=== PATIENT | male | born 1950 | race Caucasian/White ===

== ENCOUNTER 2023-07-06 14:16 | Inpatient (IN) | payer BC, MEDICARE, SELFPAY ==
[2023-07-06] VITALS (19 sets, daily range): BP systolic 123–147; BP diastolic 67–88; BMI 35.0; BMI 32.5
[2023-07-06 12:02] LABS: % Basophils 0.1 % (0-2); % Eosinophils 0.5 % (0-6); % Immature Granulocytes 0.7 % (0-0.5); % Lymphocytes 5.7 % (20.5-51.1); % Monocytes 9.1 % (1.7-9.3); % Neutrophils 83.9 % (42.2-75.2); Absolute Eosinophils 0.1 10^3/uL (0-0.7); Absolute Immature Granulocytes 0.1 10^3/uL (0-0.05); Absolute Lymphocytes 0.9 10^3/uL (1.2-3.4); Absolute Monocytes 1.4 10^3/uL (0.1-0.6); Absolute Neutrophils 12.9 10^3/uL (1.4-6.5); Mean Corpuscular Hgb 28.9 pg (27.0-31.0); Mean Corpuscular Volume 90.5 fL (80.0-94.0); Mean Platelet Volume 8.9 fL (7.4-10.4); Nucleated Red Blood Cells % 0.4 % (-); Platelet Count 217 10^3/uL (130-400); White Blood Cell Count 15.3 10^3/uL (4.8-10.8)
--- NOTE | 2023-07-06 12:07 | ED.GENMED ---
History of Present Illness
General
Chief Complaint: Abdominal Symptoms
Source: patient
Exam Limitations: none
Time Seen by Provider: 07/06/23 11:48
Travel History
Have you had any contact with someone who has COVID-19?: No
Do you have any symptoms of coronavirus? Fever > 100 degrees, chills, cough, shortness of breath, sore throat, loss of taste or smell, muscle aches, or headache?: No
History of Present Illness
History of Present Illness:
72-year-old male presents via EMS with complaints of weakness dizziness fatigue following an episode of diarrhea and constipation he has been dealing with over the past 4 days. He felt as though he had some bad macaroni and cheese. 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 He developed diarrhea 5 days ago then became constipated. After taking MiraLAX for his constipation his stool turned black. He now notes a motor bike mechanic ulloa color. He denies chest pain or shortness of breath. He notes racing heart. No
other complaints at this time
Phy Exam
Physical Exam
Physical Exam:
General: Well-appearing male no acute respiratory distress
HEENT: Normocephalic atraumatic
Heart: Tachycardic but regular
Lungs: Clear to auscultation bilaterally no wheezing
Abdomen is soft nontender nondistended guarding rebound normal bowel sounds
Extremities: No cyanosis or edema
Skin: Warm no rash
Course
Orders/Labs/Results
Orders:
Orders
07/06/23 11:41
Electrocardiogram (*1) Urgent
Reason for Study: Abdominal Pain
07/06/23 11:42
EKG- Treatment ONCE
07/06/23 11:50
COVID-19 Antigen Urgent
Source: Nasal Swab
Complete Blood Count/With Diff Urgent
Comprehensive Metabolic Panel Urgent
Ferritin Urgent
Comment: ADD ON
Folate Urgent
Comment: ADD ON
Iron Urgent
Comment: ADD ON
Lipase Urgent
Total Iron Binding Urgent
Comment: ADD ON
Vitamin B12 Urgent
Comment: ADD ON
INF RAPID [Influenza A+B Rapid Molecular] Urgent
MUKESH Source: Nasal Swab
Specimen Description:
07/06/23 12:18
0.9% Sodium Chloride 1000 ml [Nss] 1,000 ml IV BOLUS
07/06/23 12:43
Blood Bank Products [* Blood Bank Products] Urgent
Blood Bank Products: *Packed RBC Leuko(PRBC's)
Quantity: 2
Transfuse Today: Yes
Reason: Anemia
07/06/23 12:44
Pantoprazole [Protonix IV] 80 mg IV NOW STA
07/06/23 12:45
Pantoprazole 80 mg/100 ml Nss [Protonix] 80 mg in 100 ml IV Q10H
07/06/23 12:55
Type+Screen Urgent
07/06/23 13:32
Add On- LAB Urgent
Tests Added?: iron, ferritin, tibc, folate, vit b12
07/06/23 13:48
GASTROINTESTINAL CONSULT Routine
Consulting Provider: Olena Cat
Was physician already notified: Yes
07/06/23 13:50
Admit/Transfer Patient As Directed
Co-Sign Provider:
Level of Care: Inpatient admission
Assign to:: IMU- Intermediate Care
Physician / Group: catrina
Diagnosis: GI Bleed, Anemia
Reason for Hospitalization: GI consult; blood transfusion
Expected length of stay greater than two midnights?: Yes
ELOS- Estimated Length of Stay in days: 3
I certify the patient meets the requirements for IP care: Yes
07/06/23 13:52
Code Status As Directed
Resuscitation Status: Full Code
07/06/23 Dinner
NPO
Allow oral meds: Yes
Allow clear liquids: Sips of Clears
07/06/23 16:09
0.9% Sodium Chloride 1000 ml [Nss] 1,000 ml IV 100 mls/hr
07/06/23 16:09
Activity As Directed
Activity Level: Out of Bed- Chair
INT (Intravenous Needle Therapy) As Directed
Comment: Place 2 IV catheters of the largest bore possible until stable
Intake/ Output As Directed
Frequency: Per unit guidelines
Orthostatic Vital Signs As Directed
Orthostatic VS Frequency: Now
Comment: then every four hours for twenty-four hours
Pneumatic Compression Sleeves As Directed
Type: Knee high
Vital Signs As Directed
Frequency: Per unit guidelines
DX Deep Vein Thrombosis Video Routine
Abnormal Lab Results
07/06/23 07/06/23
11:50 12:55
WBC 15.3 H 10^3/uL
(4.8-10.8)
RBC 1.90 L 10^6/uL
(4.70-6.10)
Hgb 5.5 L* g/dL
(13.0-18.0)
Hct 17.2 L* %
(39.0-52.0)
MCHC 32.0 L g/dL
(33.0-37.0)
RDW 18.0 H %
(11.5-14.5)
Abs Immat Gran (auto) 0.1 H 10^3/uL
(0-0.05)
Absolute Neuts (auto) 12.9 H 10^3/uL
(1.4-6.5)
Absolute Lymphs (auto) 0.9 L 10^3/uL
(1.2-3.4)
Absolute Monos (auto) 1.4 H 10^3/uL
(0.1-0.6)
Immature Gran % 0.7 H %
(0-0.5)
Neutrophils % 83.9 H %
(42.2-75.2)
Lymphocytes % 5.7 L %
(20.5-51.1)
Sodium 132 L mmol/L
(135-145)
Glucose 134 H mg/dl
(70-99)
Iron 26 L ug/dl
(49-181)
% Saturation 6 L %
(20-50)
Ferritin 13.7 L ng/ml
(17.9-464.0)
AST 69 H U/L
(17-59)
Crossmatch IS Only See Detail
07/06/23 11:50
07/06/23 11:50
Vital Signs
Initial and Last Documented VS:
Initial Vital Signs
BP
132/67
07/06/23 11:38
Last Documented Vital Signs
Temp Pulse Resp BP Pulse Ox
99.0 F 105 25 138/79 96
07/07/23 12:13 07/07/23 11:45 07/07/23 11:45 07/07/23 11:45 07/07/23 13:26
MDM/Problems Addressed
Differential Diagnosis Includes:
Fatigue and weakness following diarrhea. Resting tachycardia. Looks dry on exam. No chest pain. Question of volume depletion versus electrolyte abnormality versus anemia
Abdomen exam benign. No indication for imaging
Will check labs and hydrate
*Critical Care Note
Total Time (30-74mins, 75-104mins- exclusive of procedures): Not Applicable
Update Note
Update Note:
Patient is resting tachycardic and upon standing to urinate and heart rate jumps into the higher 120s. He does feel lightheaded upon standing. Hemoglobin is 5.5. Rectal exam shows dark brown stool that is heme positive. Patient's symptoms are
from ongoing GI bleed. He is severely anemic and symptomatic. Blood consent signed. Ordered 2 units packed red blood cells and will admit to hospital
ED Attending Note
-
Portions of this chart may have been created with voice recognition software.� Occasional wrong word or��sound alike� substitutions may have occurred due to the inherent limitations of voice recognition software.
Discharge Plan
Departure
Patient Disposition: Admit
Date of Disposition: 07/06/23
Time of Disposition: 13:11
Admit to: Telemetry
Presentation/result/management discussed w/ accepting MD/DO: Hospitalist
Discharge Problem:
Anemia, Acute GI bleeding
Interventions
Interventions:
*General Assessment Last Done: 07/06/23 11:43
*Neglect/Abuse Screening Last Done: 07/06/23 11:43
*ED COVID-19 Vaccine History Last Done: 07/06/23 16:40
*Nursing Disposition Last Done: 07/06/23 16:16
TR-Tpwawg-Hlvduerylk Assessment Last Done: 07/06/23 12:55
Discharge Date and Time
Discharge Date/Time: 07/06/23 16:17
[2023-07-06 12:13] LABS: COVID-19 Antigen Negative (Negative)
[2023-07-06 12:16] LABS: Hematocrit 17.2 % (39.0-52.0); Hemoglobin 5.5 g/dL (13.0-18.0)
[2023-07-06] MEDS: NSS 1000 IV ×2 (12:20→17:06)
[2023-07-06 12:35] LABS: ALT (SGPT) 30 U/L (0-50); AST (SGOT) 69 U/L (17-59); Albumin 3.7 g/dl (3.5-5.0); Alkaline Phosphatase 88 U/L (38-126); Blood Urea Nitrogen 15 mg/dl (9-20); Calcium 8.5 mg/dl (8.4-10.2); Carbon Dioxide 22 mmol/L (22-30); Chloride 103 mmol/L (98-107); Estimated Creatinine Clearance 97 ml/min; Glucose 134 mg/dl (70-99); Lipase 59 U/L (23-300); Potassium 3.6 mmol/L (3.5-5.1); Sodium 132 mmol/L (135-145); Total Bilirubin 0.4 mg/dl (0.2-1.3); Total Protein 6.6 g/dl (6.3-8.2); eGFR > 60.00
[2023-07-06] MEDS: PROTONIX 100 IV ×2 (13:20→23:23)
[2023-07-06] MEDS: PROTONIX IV 80 MG IV (13:20)
--- NOTE | 2023-07-06 14:10 | HPS.HSE ---
Addendum entered and electronically signed by Bernard Phillip MD 07/06/23 14:32:
I saw and examined the patient.
The RECOVERY ADVOCATE or PA's note was reviewed and I agree with the note.
Comment: 72-year-old male presents with chief complaint of weakness and dizziness.
147/79, 109, 16, 97.6 F, 99% RA
NAD, awake and alert
Tachycardic, regular rhythm, normal S1/S2
CTAB
+BS/soft/NT/ND
CN2-12 intact, non-focal
WBC 15.3, Hb 5.5, plt 217
Cr 0.7
Acute blood loss anemia due to likely acute upper GI bleed:
-NPO/IV fluids/PPI drip
-suspect PUD as the cause of GIB due to NSAIDs
-c/s GI for EGD, hopefully this will be done today
-transfuse 2U pRBCs
-H/H Q6H
-IMU
Original Note:
Family Physician
-
Family Physician: * NONE
Chief Complaint
-
Weakness and Dizziness
History of Present Illness
Patient is a 72 y/o male with no known significant PMH who presented to the ED complaining of dizziness x 2 days. Patient says he has been feeling unwell since Sunday which he attributes to bad macaroni and cheese. 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 This continued on Sunday but he continued to drive several hours. On Sunday, he became constipated and was able to tolerate a small amount of food. He took
Miralax on Sunday and had black stool. He denies taking Pepto Bismol. He had soft walker stool on Sunday and . Today he was dizzy and felt his heart racing which made him present to the ED. He admits to chronic left hip pain for which he
was taking 2 tabs of ibuprofen every 4 hours for a few years. He switched to Aleve 2 months ago and has been taking one tablet 2-3 times per day. He last saw a doctor 10 years ago and had a colonoscopy which he says was normal. He denies fever and
abdominal pain.
Medical History
Past Medical History
Past Medical History: Reports None
Past Surgical History: Reports Other
Additional Past Surgical History:
Right Hip Replacement
Right Forearm Benign Tumor Resection
Right Shoulder Bone Chip Removal
Social History
Tobacco: Non-smoker
Alcohol: Occasional
Family History
Family History: Not pertinent
Allergies / Home Medications
Allergies reflects when Allergies were last updated in [employer].
Home Medications with original date entered in [employer]
Allergy/Medication List:
Allergies
Allergy/AdvReac Type Severity Reaction Status Date / Time
acetaminophen Allergy Nausea Verified 07/06/23 11:39
[From Tylenol-Codeine #3]
codeine Allergy Nausea Verified 07/06/23 11:39
[From Tylenol-Codeine #3]
Home Medications
naproxen sodium 220 mg tablet (Aleve) 220 mg PO Q8HPRN PRN pain 07/06/23
Review of Systems
-
A 12 point ROS was completed and negative except as noted: Yes
Constitutional: Denies Fever or Chills
Respiratory: Reports Trouble Breathing; Denies Cough
Cardiac: Reports Palpitations; Denies Chest Pain
Physical Exam
Vital Signs
Vital Signs
Temp Pulse Resp BP Pulse Ox
97.6 F 109 16 147/79 99
07/06/23 11:43 07/06/23 13:30 07/06/23 11:45 07/06/23 13:00 07/06/23 12:30
Physical Exam
General: Comfortable and Conversant
HEENT: NormoCephalic, Anicteric and Moist mucous membranes
Respiratory: Clear and Non Labored Respirations
Cardiac: S1/S2, Regular Rhythm and Tachycardia
GI: Soft and Non Tender
Rectal: Hem Positive (Per ED Provider)
Musculoskeletal: No Clubbing, No Cyanosis and No Edema
Skin: Warm and Dry
Neuro: Awake, Alert and Oriented
Psych: Calm
Laboratory Results
-
07/06/23 11:50
07/06/23 11:50
Laboratory Results
Total Bilirubin 0.4 mg/dl (0.2-1.3) 07/06/23 11:50
AST 69 U/L (17-59) H 07/06/23 11:50
ALT 30 U/L (0-50) 07/06/23 11:50
Alkaline Phosphatase 88 U/L (38-126) 07/06/23 11:50
Lipase 59 U/L (23-300) 07/06/23 11:50
Data Reviewed
-
Lab Data: Labs Reviewed by me
Impression/Plan
-
Symptomatic Anemia, suspect acute blood loss
-Transfuse 2 units PRBCs
-Check iron studies
-Trend serial Hgb
GI Bleed, suspect upper nature particularly given his NSAID use
-Consult GI
-Continue Protonix drip
DVT proph: SCDs
Code Status: Full Code
--- NOTE | 2023-07-06 14:38 | CON.GI ---
Addendum entered and electronically signed by Olena Cat MD 07/06/23 15:44:
I saw and examined the patient.
The AUTOMOTIVE GLASS INSTALLER's note was reviewed and I agree with the note.
-Acute symptomatic anemia /dark stool/NSAID use -likely upper GI bleeding. No prior EGD.
-Family history of colon cancer last colonoscopy over 10 years back.
plan
Monitor H&H
Transfuse to keep hemoglobin above 7
Continue PPI drip
Full liquid diet now. N.p.o. after midnight
EGD tomorrow. If EGD negative will discuss about colonoscopy inpatient versus outpatient
Original Note:
Consultation
-
Date/Time Consultation Requested: 07/06/23 1410
Date/Time Consultation Performed: 07/06/23 1430
Requesting Provider: Kell Lo PA-C
Performing Provider: HARDEEP Dickinson, Olena Cat MD
Reason for Consultation: anemia
Medical History
Chief Complaint / HPI
Chief Complaint: weakness, dizziness
History of Present Illness:
Pt is a 72yo with hx prior hip replacement, forarm benign tumor, and shoulder surgery with onset of dizziness and weakness. Pt was also noted with diarrhea and food intolerance and thought he had food poisoning. He was noted Sunday with black
stools, continued dizziness and increased heart rate. Prior to admission admit to chronic hip pain and need for hip replacement. He has been taking Ibuprofen every 4 hours for years. About 3 months ago he switched to Aleve 4 tablets daily. On
admission noted with hbg 5.5 with WBC 15.3 and normal BUN. Rectal in ER dark brown heme + stools. NO hx EGD and last colonoscopy 10-12 years ago normal.
Pt currently admits to red stools several months with possible hemorrhoids. He otherwise denies odynophagia, dysphagia, GERD, nausea, vomiting, or abdominal pain
Past Medical History
Past Surgical History: Orthopedic (right hip replacement, right forarm benign tumor, right shoulder bone chip)
Social History
Tobacco: Non-Smoker
Alcohol: None
Drug: None
Living: With Family
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
Family History
Family History: Other (mother with colon CA father hx unknown )
Allergies / Home Medications
Allergy/AdvReac Type Severity Reaction Status Date / Time
acetaminophen Allergy Nausea Verified 07/06/23 11:39
[From Tylenol-Codeine #3]
codeine Allergy Nausea Verified 07/06/23 11:39
[From Tylenol-Codeine #3]
Medication Instructions Recorded
naproxen sodium 220 mg tablet 220 mg PO Q8HPRN PRN pain 07/06/23
(Aleve)
Review of Systems
-
History Source: Patient and Family
Constitutional: Reports No Symptoms
EENT: Reports No Symptoms
Respiratory: Reports Trouble Breathing
Cardiac: Reports Chest Pain and Palpitations
Abdomen/GI: Reports Bloody Stools (3 months ago ? hemorrhoids ) and Black Stools
: Reports No Symptoms
Musculoskeletal: Reports No Symptoms
Neurological: Reports Dizzy and Weakness
Endocrine: Reports No Symptoms
Hematologic/Lymphatic: Reports Bleeding
Vital Signs
Temp Pulse Resp BP Pulse Ox
97.6 F 109 16 147/79 99
07/06/23 11:43 07/06/23 13:30 07/06/23 11:45 07/06/23 13:00 07/06/23 12:30
Physical Exam
Exam
General: Well Developed, Well Nourished and No Apparent Distress
HEENT: Normocephalic and Anicteric
Respiratory: Clear
Cardiac: Other (tachy)
GI: Soft, Non Tender and Non Distended
Rectal: Other (heme + dark brown stool )
Musculoskeletal: No Clubbing and No Cyanosis
Skin: Warm and Dry
Neuro: Awake, Alert and AO x 3
Psych: Calm
Results
WBC 15.3 10^3/uL (4.8-10.8) H 07/06/23 11:50
Hgb 5.5 g/dL (13.0-18.0) L* 07/06/23 11:50
Hct 17.2 % (39.0-52.0) L* 07/06/23 11:50
MCV 90.5 fL (80.0-94.0) 07/06/23 11:50
Plt Count 217 10^3/uL (130-400) 07/06/23 11:50
Absolute Neuts (auto) 12.9 10^3/uL (1.4-6.5) H 07/06/23 11:50
Sodium 132 mmol/L (135-145) L 07/06/23 11:50
Potassium 3.6 mmol/L (3.5-5.1) 07/06/23 11:50
Chloride 103 mmol/L (98-107) 07/06/23 11:50
Carbon Dioxide 22 mmol/L (22-30) 07/06/23 11:50
BUN 15 mg/dl (9-20) 07/06/23 11:50
Creatinine 0.7 mg/dL (0.7-1.3) 07/06/23 11:50
Calcium 8.5 mg/dl (8.4-10.2) 07/06/23 11:50
Total Bilirubin 0.4 mg/dl (0.2-1.3) 07/06/23 11:50
AST 69 U/L (17-59) H 07/06/23 11:50
ALT 30 U/L (0-50) 07/06/23 11:50
Alkaline Phosphatase 88 U/L (38-126) 07/06/23 11:50
Lipase 59 U/L (23-300) 07/06/23 11:50
Diagnostic Image Results:
Prior GI Procedures:
EGD: none
Colonoscopy: 10- 12 years ago normal
Assessment / Plan
-
Pt is a 72yo with hx prior hip replacement, forarm benign tumor, and shoulder surgery with onset of diarrhea and food intolerance with concern for food poisoning. He then noted black stools and admits to taking Ibuprofen every 4 hours for years.
About 3 months ago he switched to Aleve 4 tablets daily. On admission noted with hbg 5.5 with WBC 15.3 and normal BUN. Rectal in ER dark brown heme + stools. NO hx EGD and last colonoscopy 10-12 years ago normal.
-symptomatic anemia
-recent melena
-frequent NSAID use
-chronic hip pain
-family hx colon CA
PLAN:
etiology of anemia likely related to PUD with hx NSAID use vs ectasia, mass vs other in differential
plan for transfusion today
trend hbg
EGD if AM in neg then colonoscopy
cont protonix gtt
counseled on NSAID avoidance ok for Tylenol use < 4 grams per day
discussed plan with pt and daughter will need PCP established in [place] to review for chronic pain in hip and OP ortho eval
if colonoscopy not completed inpatient will need OP for follow up for family hx colon CA
ok for full liquid diet tonight then NPO in AM
await iron studies see if benefit from iron infusion
will follow
-
-
Thank you for consultation and allowing me to participate in the patient's care. Please call the oncology radiation physician GI physician during the after hours with any questions or concerns.
[2023-07-06 15:04] LABS: Iron 26 ug/dl (49-181)
[2023-07-06 15:13] LABS: Percent Saturation 6 % (20-50); Total Iron Binding Capacity 430 ug/dl (261-462)
[2023-07-06 15:37] LABS: Ferritin 13.7 ng/ml (17.9-464.0)
[2023-07-06 16:09] LABS: Folate 16.9 ng/ml (2.76-20); Vitamin B12 443 pg/ml (239-931)
--- NOTE | 2023-07-06 18:02 | PTCARENOTE ---
Patient arrived from ER with GI bleed diagnosis. First unit of PRBCs transfusing upon arrival. Patient having pain on left hip when he moves it. Oriented to person, place and time. NPO. Patient was oriented to room, fully bathed. Educated about plan
of care. Patient was complaining of a numbness feeling to his upper lip when he arrived, but it resolved within minutes. Tolerating the blood transfusion at this time.
[2023-07-06] MEDS: PROTONIX IV (23:50)
[2023-07-07] VITALS (37 sets, daily range): BP systolic 116–150; BP diastolic 73–92; BMI 33.5
--- NOTE | 2023-07-07 00:48 | PTCARENOTE ---
Addendum entered by Sissy Pacheco 07/07/23 03:34:
Pt noted to desat periodically to 88, 2L O2 placed with improvement to 96%
Original Note:
Pt AAOx3, anxious at times, but very cooperative. Pt c/o pain in his L hip and states he needs a hip replacement. Positioning assistance provided to assist pain. Pt states pain is better in certain positions and worsens with exertion and
weight-bearing. Denies dizziness, lightheadedness, etc. 2nd unit PRBCs transfused and tolerated. Pt c/o slight numbness/stinging feeling in his upper lip at the 15 minute sha of transfusion and states that he experienced the same phenomenon with
the previous transfusion. GRANTS ASSISTANT notified. Pt states spontaneous relief of symptoms without intervention. This Rn encouraged pt to alert care team of changes in symptoms.
[2023-07-07] MEDS: NSS 1000 IV ×3 (03:20→23:07)
[2023-07-07 05:34] LABS: Mean Corp Hgb Conc. 32.8 g/dL (33.0-37.0); Mean Corpuscular Hgb 28.4 pg (27.0-31.0); Mean Corpuscular Volume 86.8 fL (80.0-94.0); Platelet Count 156 10^3/uL (130-400); Red Blood Cell Count 2.04 10^6/uL (4.70-6.10); Red Cell Dist. Width 17.3 % (11.5-14.5); White Blood Cell Count 11.9 10^3/uL (4.8-10.8)
[2023-07-07 05:39] LABS: Hematocrit 17.7 % (39.0-52.0); Hemoglobin 5.8 g/dL (13.0-18.0)
[2023-07-07 05:59] LABS: Blood Urea Nitrogen 8 mg/dl (9-20); Calcium 4.8 mg/dl (8.4-10.2); Carbon Dioxide 15 mmol/L (22-30); Chloride 121 mmol/L (98-107); Estimated Creatinine Clearance 113 ml/min; Glucose 64 mg/dl (70-99); Potassium 2.3 mmol/L (3.5-5.1); Sodium 136 mmol/L (135-145); eGFR > 60.00
--- NOTE | 2023-07-07 06:22 | W.PN.UPDATE ---
Update Note
Progress Note Update
hgb 5.8 this AM. Received 2 units PRBC's over night. per nursing noted small dark stool. Will order 2 units of PRBC's
k 2.3, will order K-rider once
calcium 4.8, corrected calcium 4.6, will order Calcium gluconate IV
will order EKG for abnormal labs.
stable VS.
[2023-07-07] MEDS: KCL 270 MEQ IV (06:26)
[2023-07-07] MEDS: CALCIUM GLUCONATE 100 IV (07:43)
--- NOTE | 2023-07-07 08:00 | W.PN.HOSP.TC ---
Addendum entered and electronically signed by Ender Muñoz MD 07/07/23 12:33:
repeat hgb noted to be 7.7 and with probable transfusion rxn, will dc further blood transfusion at this time
Addendum entered and electronically signed by Ender Muñoz MD 07/07/23 09:36:
called back to see pt by nurse, when pt expressed itchy area on legs that on exam by nurse appears to be a rash
concern for transfusion rxn
Lungs totally clear, no wheeze
CV reg
Imp:rash of ?etiology, most pronounced on legs, Rt>Lt, lesser on abd and arms and pt needs the blood
P:IV Benadryl now and q6h prn
Heme consult
follow CBC
Addendum entered and electronically signed by Ender Muñoz MD 07/07/23 08:32:
Jade gonzalez called and fully updated >10 minutes
Original Note:
Today's Communication/Plan
-
transfer to ICU
correct electrolytes, transfuse
Picc line
Assessment / Plan
Assessment / Plan
Acute blood loss anemia due to likely acute upper GI bleed:
-NPO/IV fluids/PPI drip
-suspect PUD as the cause of GIB due to NSAIDs
-c/s GI for EGD, due to electrolyte issues, text received from Dr. Cat, plan is to 'hold off on EGD'
-transfused 2U pRBCs
Hgb 5.5-->5.8, to receive additional 2 units CATHY, already ordered
Hypokalemia/Hypocalcemia
most likely transfusion related. Will replete and recheck in 5 hours
Borderline tachycardia
most likely from blood loss anemia. Will follow closely
P:2 units PRBC now
IV K and Ca now
continue IV Protonix
transfer ICU/CCM consult requested, Dr. Coffey aware
recheck labs
await decision as to timing of EGD
Pt attempted to call dgt to update, no answer, he then called friend Zbigniew who will update dgt,
Full Code
Total Critical Care Time 55 minutes. I was immediately available to the patient and staff. I personally examined, reviewed labs, diagnostic images/reports, interpretations, treatment plans, discussed patient care with other providers and family
or caregivers (if patient is unable to make decisions), entered orders as appropriate and documented the medical record.
Anticipated Discharge: > 48 hours
Subjective/Interval History
-
Date of Service: July 07, 2023
Called by nursing to see patient CATHY due to lab results and concern for instability, came to unit immediately
Objective Data
-
Labs:
Laboratory Results
07/06/23 07/07/23 07/07/23
19:30 05:10 13:00
WBC 11.9 H Pending
Hgb Cancelled 5.8 L* Pending
Hct Cancelled 17.7 L* Pending
Plt Count 156 D Pending
Sodium 136
Potassium 2.3 L* D
Chloride 121 H
Carbon Dioxide 15 L
BUN 8 L
Creatinine 0.4 L
Glucose 64 L
Calcium 4.8 L* D
07/07/23 07/07/23
13:52 21:52
WBC
Hgb Pending
Hct
Plt Count
Sodium Pending
Potassium Pending
Chloride Pending
Carbon Dioxide Pending
BUN Pending
Creatinine Pending
Glucose Pending
Calcium Pending
Vital Signs:
Vital Signs
Temp Pulse Resp BP Pulse Ox
99.2 F 96 19 119/77 98
07/07/23 03:20 07/07/23 06:00 07/07/23 06:00 07/07/23 06:00 03/23/24 06:00
I&O
07/06/23 07/07/23 07/08/23
06:59 06:59 06:59
Intake Total 2660 / 2659
Output Total 970 /
Balance 1690 / 169
Review of Systems
-
History Source: Patient and Coordinated Provider
Constitutional: Reports Fever (100.1 at 23:44)
Respiratory: Reports No Symptoms; Denies Trouble Breathing
Cardiac: Denies Chest Pain (pt denies)
Musculoskeletal: Reports Joint Pain (chronic hip pain)
Neuro: Reports No Symptoms
Physical Exam
-
General: Well Developed, Well Nourished and No Apparent Distress
HEENT: Normocephalic, Atraumatic and Moist Mucous Membranes
Respiratory: Clear to Auscultation; Negative Wheezes, Rales or Rhonchi
Cardiac: Regular Rhythm, S1/S2 and Tachycardic (borderline 95-108)
GI: Soft, Nontender and Nondistended
Rectal: Hem Positive (as per nursing)
Neuro: Awake, Alert and Oriented
--- NOTE | 2023-07-07 09:23 | CON.INTV ---
Consultation
Consultation Request
Date/Time Consultation Requested: 07/07/2023-9 AM
Date/Time Consultation Performed: 07/07/2023-9 AM
Requesting Provider: Dr. Muñoz
Performing Provider: Dr. Coffey
Reason for Consultation: Critical care management
Medical History
-
Chief Complaint: GI bleed
History of Present Illness:
72-year-old male without significant past medical history presents with dizziness, hypotension, diarrhea and felt to have GI bleed with anemia and electrolyte imbalances requiring fluid resuscitation, transfusions and intensive care unit
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 He denies any shortness of breath lying flat, chest pain, chest tightness, productive cough, abdominal pain, his nausea has improved. He does not complain of
weakness or lower extremity swelling.
Past Medical History
Past Medical History: None (Offers no complaint plaints of previous hypertension, hyperlipidemia, CAD, pulmonary, renal, gastrointestinal or neurologic disease in the past)
Past Surgical History: None (Right forearm tumor resection. Right shoulder bone chip removal)
Social History
Tobacco: Non-smoker
Alcohol: None
Drug: None
Occupational Exposures: No known asbestos exposure
Environmental Exposures: No known tuberculosis exposure
Family History
Family History: Reviewed & Not Pertinent
Allergies / Home Medications
Allergies
Allergy/AdvReac Type Severity Reaction Status Date / Time
acetaminophen Allergy Nausea Verified 07/06/23 11:39
[From Tylenol-Codeine #3]
codeine Allergy Nausea Verified 07/06/23 11:39
[From Tylenol-Codeine #3]
Home Medications
Medication Instructions Recorded Confirmed Last Taken Type
naproxen sodium 220 mg tablet 220 mg PO Q8HPRN PRN pain 07/06/23 07/06/23 Unknown History
(Aleve)
Review of Systems
-
Unable to Obtain full review of systems at this time due to: Other (Per HPI)
Vitals / Labs / Diagnostic Testing
Vital Signs
Temp Pulse Resp BP Pulse Ox
99.3 F 108 23 133/86 97
07/07/23 08:57 07/07/23 08:57 07/07/23 08:57 07/07/23 08:57 07/07/23 08:57
Microbiology
07/06/23 11:50 Nasal Swab Influenza Types A & B (DESI) - Final
Negative for Influenza A & B, NAAT
Negative results must be combined with clinical observations
and patient history.
Nucleic Acid Amplification test (NAAT)performed on the
[employer] platform.
Diagnostic Testing:
Physical Exam
-
Exam:
Well-nourished and well-developed in no apparent distress
HEENT-atraumatic, normocephalic
Neck-supple, no JVD, no bruit
Heart-regular rate and rhythm-no murmurs, rubs or gallops
Chest-clear to auscultation, no wheezes, crackles
Back-no tenderness
Abdomen-soft, nontender, nondistended, no hepatosplenomegaly
Extremities-no cyanosis, clubbing, edema and good peripheral pulses
Integument-intact, no rashes, lesions or ecchymosis
Neurology-alert and oriented, nonfocal motor and sensory exam
Assessment
-
72-year-old male without significant past medical history presents with dizziness, hypotension, diarrhea, and taking nonsteroidals for several years for left hip pain and felt to have GI bleed with anemia and electrolyte imbalances requiring fluid
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
Anemia due to acute blood loss-hemoglobin 5.5
Upper GI bleed suspected-given significant nonsteroidal use
Suspected transfusion reaction
Mild leukocytosis
Hypokalemia-potassium 2.3
Metabolic acidosis
Hypoglycemia
Hypocalcemia
Conditions present prior to admission:
Right forearm benign tumor resection
Right shoulder bone chip removal
Denies hypertension, hyperlipidemia, CAD, pulmonary, renal, gastrointestinal or neurologic disease
Plan
Patient will be transferred to medical intensive care with active bleeding, critically ill and in need of resuscitation
Supplemental oxygen as needed
Aspiration precautions
Incentive spirometry
Monitor hemoglobin
Transfuse packed red blood cells and FFP as needed
Monitor coagulopathy
Possible transfusion reaction
Transfusion stopped-blood bank notified
Blood and urine samples taken
Hematology evaluation
GI evaluation
Consider endoscopy-tentatively scheduled for Sunday
PPI drip
Replace electrolytes
Follow electrolytes closely
Dextrose for hypoglycemia
Intravenous fluids
DVT prophylaxis-mechanical
GI prophylaxis-on PPI
Aspiration precautions
Nutrition-nothing p.o. for now
Early mobilization
Critical care statement: A total of 50 minutes of critical care time was provided for this patient today. This includes management of unstable vital signs, management of transfusions, evaluation of the patient at bedside, reviewing the patient's
pertinent medical records including radiographs, microbiology, laboratory evaluations, and discussion with primary team, consultants, pharmacy, nutrition, physical therapy, case management, charge nurse, critical care nursing, and respiratory
therapy.
Diagnostic data:
Data Reviewed
-
EKG: Report reviewed by me
Labs: Labs reviewed by me
Old Records: Reviewed
Critical Care Time (in minutes): 50
--- NOTE | 2023-07-07 09:26 | PTCARENOTE ---
Minutes into starting 3rd unit of PRBCs as nurse was assessing patient urticaria was observed on patients arms, abdomen and legs. Dr. Muñoz contacted and assessed patient at bedside. Vital signs 135/75, 105, 19, 98.2. Patient also stating that he
is having a tingling feeling on upper lip, no objective signs of swelling. New orders pending.
[2023-07-07] MEDS: BENADRYL 25 MG IV ×2 (09:46→23:00)
[2023-07-07] MEDS: PROTONIX 100 IV ×2 (10:13→20:26)
[2023-07-07 10:32] LABS: % Basophils 0.2 % (0-2); % Eosinophils 0.5 % (0-6); % Immature Granulocytes 0.7 % (0-0.5); % Lymphocytes 6.8 % (20.5-51.1); % Monocytes 10.2 % (1.7-9.3); % Neutrophils 81.6 % (42.2-75.2); Absolute Eosinophils 0.1 10^3/uL (0-0.7); Absolute Immature Granulocytes 0.1 10^3/uL (0-0.05); Absolute Lymphocytes 0.9 10^3/uL (1.2-3.4); Absolute Monocytes 1.4 10^3/uL (0.1-0.6); Absolute Neutrophils 10.9 10^3/uL (1.4-6.5); Hematocrit 23.7 % (39.0-52.0); Mean Corp Hgb Conc. 32.5 g/dL (33.0-37.0); Mean Corpuscular Hgb 28.2 pg (27.0-31.0); Mean Corpuscular Volume 86.8 fL (80.0-94.0); Mean Platelet Volume 9.1 fL (7.4-10.4); Nucleated Red Blood Cells % 0.5 % (-); Platelet Count 216 10^3/uL (130-400); Red Blood Cell Count 2.73 10^6/uL (4.70-6.10); Red Cell Dist. Width 17.3 % (11.5-14.5); White Blood Cell Count 13.3 10^3/uL (4.8-10.8)
[2023-07-07 10:39] LABS: Hemoglobin 7.7 g/dL (13.0-18.0)
--- NOTE | 2023-07-07 10:45 | PTCARENOTE ---
Pt received from IMU to ICU room 3357. (VS's captured from 0800). Pt oriented x3, HR ST 101, BP stable. O2 2l nc with o2 sat=99%. Lobes clear throughout. Pt denies any CP or SOB at this time. Rash on body gone now. Dr Cat from GI in to see pt.
Pt cleared for full liq diet now, and does not want to scope pt until mon. Dr Coffey assessed pt, no further blood transfusions to given at this time. Complete CHG bath given, and linen changed. Call zacarias at pt side.
--- NOTE | 2023-07-07 10:54 | PTCARENOTE ---
Patients hives continued and patient started to complain of chest pain. Blood stopped and reaction reported. Dr. Muñoz and Erlinda aware. Blood reaction protocol followed. Benadryl 25 mg administered IV with relief. Patient transferred to ICU with
personal belongings.
[2023-07-07 10:57] LABS: Blood Urea Nitrogen 12 mg/dl (9-20); Calcium 7.9 mg/dl (8.4-10.2); Carbon Dioxide 23 mmol/L (22-30); Chloride 105 mmol/L (98-107); Estimated Creatinine Clearance 85 ml/min; Glucose 104 mg/dl (70-99); Potassium 4.1 mmol/L (3.5-5.1); Sodium 133 mmol/L (135-145); eGFR > 60.00
--- NOTE | 2023-07-07 11:14 | W.PN.GI.CBS2 ---
Today's Communication / Plan
-
Monitor H&H. Transfuse to keep hemoglobin above 7
Correct hypokalemia
liquid diet
EGD plan tentatively on Sunday
Assessment / Plan
-
Pt is a 72yo with hx prior hip replacement, forarm benign tumor, and shoulder surgery with onset of diarrhea and food intolerance with concern for food poisoning. He then noted black stools and admits to taking Ibuprofen every 4 hours for years.
About 3 months ago he switched to Aleve 4 tablets daily. On admission noted with hbg 5.5 with WBC 15.3 and normal BUN. Rectal in ER dark brown heme + stools. NO hx EGD and last colonoscopy 10-12 years ago normal.
-symptomatic anemia
-recent melena
-frequent NSAID use
-chronic hip pain
-family hx colon CA
PLAN:
Patient is scheduled to have EGD this a.m. Procedure was canceled because patient remains severely anemic with a hemoglobin of 5.8 after 2 units of blood transfusion yesterday. And also noted to have severe hypokalemia. Denies any overt GI
bleeding at present. ED dark brown heme + stool. Will advised to continue monitor H&H. Transfuse to keep hemoglobin above 7.
Correction of hypokalemia as per medical team
We will reevaluate tomorrow and decide on EGD on Sunday. Patient eventually needs colonoscopy -inpatient versus outpatient
Continue Protonix drip
full liquid diet
Will follow
I updated patient/patient's daughter about the plan
Total Time Spent with Patient (in minutes): 35
Subjective
Subjective
Date of Service: July 07, 2023
Denies any abdominal pain/nausea/vomiting/rectal bleeding. Small amount of dark stool noted by RN .
Objective
Data Reviewed
Laboratory Data:
Laboratory Results
07/07/23 10:04
Laboratory Results
Total Bilirubin 0.4 mg/dl (0.2-1.3) 07/06/23 11:50
AST 69 U/L (17-59) H 07/06/23 11:50
ALT 30 U/L (0-50) 07/06/23 11:50
Alkaline Phosphatase 88 U/L (38-126) 07/06/23 11:50
Lipase 59 U/L (23-300) 07/06/23 11:50
Vital Signs and I&O:
Vital Signs
Temp Pulse Resp BP Pulse Ox
99.1 F 108 25 146/86 97
07/07/23 09:54 07/07/23 09:54 07/07/23 09:54 07/07/23 09:54 07/07/23 09:54
I&O
07/06/23 07/07/23 07/08/23
06:59 06:59 06:59
Intake Total 2660 / 2660 0 / 0
Output Total 970 / 970
Balance 1690 / 1690 0 / 0
Physical Exam
Physical Exam
GI: Soft, Non Distended, Non Tender and Normal Bowel Sounds
--- NOTE | 2023-07-07 13:07 | PTCARENOTE ---
Hbg 7.7, Dr Muñoz and Dr Cat updated. Blood transfusions #3 and #[address] Muñoz. R upper arm midline placed by IV team (VAT team). Pt calling kitchen now, ordering a full liq lunch.
[2023-07-07 16:04] LABS: 5Hr. Total Bilirubin 1.2 mg/dl (0.2-1.3)
--- NOTE | 2023-07-07 16:14 | PTCARENOTE ---
Dr Muñoz updated on pt's HR slowly increasing to 110-115 ST compared to 100-101 on arrival to ICU. BP remains stable 129/77. O2 sat stable 98% on 2l nc. H+H level check changed from 2[address] Muñoz did come and assess pt. Pt
without any c/o pain. HemOcc was also consulted.
--- NOTE | 2023-07-07 20:00 | PTCARENOTE ---
Received pt. at 1900. Pt. awake, alert, and oriented. No pain or discomfort when lying still, however pt. does complain of hip pain when turning. He attributes this to prior issues and needing a hip replacement. Heart rhythm sinus. Blood pressure
normotensive. Currently on 2L nasal cannula. Lungs sound diminished. Full liquid diet ordered. Voiding in urinal without issue. Skin as documented. Discussed plan of care with patient. Will continue to trend hemoglobin. If transfusion is needed, IV
benadryl will be given prior to transfusion. Vital signs stable at this time.
[2023-07-08] VITALS (26 sets, daily range): BP systolic 127–182; BP diastolic 74–96; BMI 33.3
--- NOTE | 2023-07-08 | PTCARENOTE ---
Pt. most recent hemoglobin is 7. Physician goal is to keep hemoglobin >7. 1u PRBC ordered. IV benadryl given prior to start of transfusion. PRBC unit currently transfusing. No reaction symptoms noted. Vital signs stable at this time.
[2023-07-08 03:18] LABS: % Basophils 0.1 % (0-2); % Eosinophils 1.9 % (0-6); % Immature Granulocytes 0.5 % (0-0.5); % Lymphocytes 12.2 % (20.5-51.1); % Monocytes 11.5 % (1.7-9.3); % Neutrophils 73.8 % (42.2-75.2); Absolute Eosinophils 0.3 10^3/uL (0-0.7); Absolute Immature Granulocytes 0.1 10^3/uL (0-0.05); Absolute Lymphocytes 1.7 10^3/uL (1.2-3.4); Absolute Monocytes 1.6 10^3/uL (0.1-0.6); Absolute Neutrophils 10.3 10^3/uL (1.4-6.5); Hematocrit 22.6 % (39.0-52.0); Hemoglobin 7.8 g/dL (13.0-18.0); Mean Corp Hgb Conc. 34.5 g/dL (33.0-37.0); Mean Corpuscular Hgb 29.1 pg (27.0-31.0); Mean Corpuscular Volume 84.3 fL (80.0-94.0); Mean Platelet Volume 8.8 fL (7.4-10.4); Nucleated Red Blood Cells % 0.4 % (-); Platelet Count 182 10^3/uL (130-400); Red Blood Cell Count 2.68 10^6/uL (4.70-6.10); Red Cell Dist. Width 16.6 % (11.5-14.5); White Blood Cell Count 13.9 10^3/uL (4.8-10.8)
[2023-07-08 03:30] LABS: INR 1.28; PT 15.8 Sec (11.4-14.6)
[2023-07-08 03:31] LABS: APTT 37.7 Sec (23.4-35.0)
--- NOTE | 2023-07-08 04:00 | PTCARENOTE ---
Pt. assessment remains unchanged. No signs of active bleeding. 1u PRBC given. AM labs drawn. Hemoglobin is now 7.8. Vital signs stable at this time.
[2023-07-08 04:14] LABS: Blood Urea Nitrogen 10 mg/dl (9-20); Calcium 7.6 mg/dl (8.4-10.2); Carbon Dioxide 23 mmol/L (22-30); Chloride 106 mmol/L (98-107); Estimated Creatinine Clearance 86 ml/min; Glucose 102 mg/dl (70-99); Magnesium 2.1 mg/dl (1.6-2.3); Phosphorus 4.5 mg/dl (2.5-4.5); Potassium 3.9 mmol/L (3.5-5.1); Sodium 132 mmol/L (135-145); eGFR > 60.00
[2023-07-08] MEDS: PROTONIX 100 IV ×2 (04:58→16:43)
[2023-07-08] MEDS: CALCIUM GLUCONATE 100 IV (06:27)
--- NOTE | 2023-07-08 06:42 | CON.ONC ---
Impression
Impression
Upper GI Bleed
Acute blood loss and Fe def anemia
Reactive leucocytosis
Plan
Plan
HgB improved to 7.x (last 3 CBC's 7.7, 70, 7.8) following PRBC. Probably took 4 units because of hemodilution from IVF.
4 units PRBC should replete iron stores somewhat. After endoscopic evaluation, PO iron FeSO4 325 mg PO QOD.
IV iron can also be used depending on tolerability of PO but hold off as inpatient.
Proceed with EGD and colonoscopy for upper (and possible lower) GI bleed.
No evidence of other underlying marrow disorder. Leucocytosis likely reactive and should normalize after acute stress of bleeding improved. If remains elevated, proceed with further workup as outpatient.
Patient History
History of Present Illness
Reason for Consultation: anemia, poor response to PRBC transfusion.
CC: weakness, dizziness
HPI: 72 yo without significant medical issues who presented to 07/05 with cc of dizziness and weakness. In addition he had diarrhea, black stools. He takes Aleve 4 tablets daily for chronic hip pain past 3 months in need of hip replacement.
Previously he took Ibuprofen every 4 hours for years.
On admission noted with hbg 5.5. Rectal in ER dark brown heme + stools. NO prior EGD and last colonoscopy 10-12 years ago was normal. Seen by GI and was supposed to get an EGD yesterday but HgB only improved from 5.5 to 5.8 after 2 units of PRBC so
EGD was canceled pending better improvement. Another 2 units administered and HgB improved to 7.7 where it has remained stable. Pt admitted to red blood in his stools several months with possible hemorrhoids.
Past-Medical/Surgical History
PMH/PSH: right hip replacement, right forearm benign tumor, right shoulder bone chip
SH:
Tobacco: Non-Smoker
Alcohol: None
Drug: None
Living: With Family
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
FH:mother with colon CA; father hx unknown
Patient Medication
Medication Instructions Recorded Confirmed Last Taken Type
naproxen sodium 220 mg tablet 220 mg PO Q8HPRN PRN pain 07/06/23 07/06/23 Unknown History
(Aleve)
Active Medications
Generic Name Dose Route Start Last Admin
Trade Name Freq PRN Reason Stop Dose Admin
Diphenhydramine HCl 25 mg 07/07/23 09:37 07/07/23 23:00
Diphenhydramine 50 Mg/Ml 1 Ml Vial IV 08/04/23 09:36 25 mg
Q4HPRN PRN Administration
itchy rash
Pantoprazole Sodium 80 mg in 100 mls @ 10 mls/hr 07/06/23 23:00 07/08/23 04:58
Protonix IV 100 mls
Q10H EMA Administration
8 MG/HR
Sodium Chloride 1,000 mls @ 100 mls/hr 07/08/23 04:45
Nss IV
.Q10H EMA
Calcium Gluconate 2 gram in 100 mls @ 100 mls/hr 07/08/23 05:55
Calcium Gluconate IV 07/08/23 06:54
ONCE ONE
Sodium Chloride 0 flush 07/06/23 17:00
Sodium Chloride 0.9% (Flush) Syringe IV 08/03/23 16:59
PER PROTOCOL EMA
Physical Exam
-
General: Well Developed, Well Nourished and No Apparent Distress
HEENT: Negative Jaundice
Cardiology: Normal Sinus Rhythm, S1 and S2
Pulmonary: Clear
GI: Soft and Normal Bowel Sounds
Extremities: No C/C/E
Neurology: Non Focal
Labs
Lab Results
WBC 13.9 10^3/uL (4.8-10.8) H 07/08/23 03:10
RBC 2.68 10^6/uL (4.70-6.10) L 07/08/23 03:10
Hgb 7.8 g/dL (13.0-18.0) L 07/08/23 03:10
Hct 22.6 % (39.0-52.0) L 07/08/23 03:10
MCV 84.3 fL (80.0-94.0) 07/08/23 03:10
MCH 29.1 pg (27.0-31.0) 07/08/23 03:10
MCHC 34.5 g/dL (33.0-37.0) 07/08/23 03:10
RDW 16.6 % (11.5-14.5) H 07/08/23 03:10
Plt Count 182 10^3/uL (130-400) 07/08/23 03:10
MPV 8.8 fL (7.4-10.4) 07/08/23 03:10
Abs Immat Gran (auto) 0.1 10^3/uL (0-0.05) H 07/08/23 03:10
Absolute Neuts (auto) 10.3 10^3/uL (1.4-6.5) H 07/08/23 03:10
Absolute Lymphs (auto) 1.7 10^3/uL (1.2-3.4) 07/08/23 03:10
Absolute Monos (auto) 1.6 10^3/uL (0.1-0.6) H 07/08/23 03:10
Absolute Eos (auto) 0.3 10^3/uL (0-0.7) 07/08/23 03:10
Absolute Basos (auto) 0.0 10^3/uL (0-0.2) 07/08/23 03:10
Immature Gran % 0.5 % (0-0.5) 07/08/23 03:10
Neutrophils % 73.8 % (42.2-75.2) 07/08/23 03:10
Lymphocytes % 12.2 % (20.5-51.1) L 07/08/23 03:10
Monocytes % 11.5 % (1.7-9.3) H 07/08/23 03:10
Eosinophils % 1.9 % (0-6) 07/08/23 03:10
Basophils % 0.1 % (0-2) 07/08/23 03:10
Creatinine 0.8 mg/dL (0.7-1.3) 07/08/23 03:10
Vital Signs
Vital Signs
Temp Pulse Resp BP Pulse Ox
98.1 F 92 13 148/89 99
07/08/23 03:57 07/08/23 04:00 07/08/23 04:00 07/08/23 04:00 07/08/23 04:00
--- NOTE | 2023-07-08 07:47 | W.PN.INTV ---
Today's Communication / Plan
Recommendations
Follow hemoglobin
Transfuse as needed
Hematology involved
Benadryl provided prior to transfusion
Blood bank aware of potential reaction
EGD Sunday
If hemodynamically stable without further bleeding could be transferred out of ICU-call pulmonary if respiratory issues arise
Assessment
-
72-year-old male without significant past medical history presents with dizziness, hypotension, diarrhea, and taking nonsteroidals for several years for left hip pain and felt to have GI bleed with anemia and electrolyte imbalances requiring fluid
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
Anemia due to acute blood loss-hemoglobin 5.5
Upper GI bleed suspected-given significant nonsteroidal use
Possible transfusion reaction
Mild leukocytosis
Hypokalemia-potassium 2.3
Metabolic acidosis
Hypoglycemia
Hypocalcemia
Conditions present prior to admission:
Right forearm benign tumor resection
Right shoulder bone chip removal
Denies hypertension, hyperlipidemia, CAD, pulmonary, renal, gastrointestinal or neurologic disease
Plan
Hemodynamically improved, hives resolved and tolerated transfusion with Benadryl
Continue supplemental oxygen if needed
Aspiration precautions
Incentive spirometry encouraged
Follow-up hemoglobin
Transfuse packed red blood cells and FFP as needed-with precautions as potential suspicion for transfusion reaction-hives resolved, hematology evaluation obtained, blood and urine sent, blood bank aware
Hematology evaluation-correspondence reviewed
Possible transfusion reaction
Transfusion stopped-blood bank notified
Blood and urine samples taken
GI evaluation ongoing-correspondence reviewed
Consider endoscopy-tentatively scheduled for Sunday
PPI drip
Continue to replace electrolytes
Monitor electrolytes closely
Dextrose for hypoglycemia
Intravenous fluids
DVT prophylaxis-mechanical
GI prophylaxis-on PPI
Aspiration precautions
Nutrition-nothing p.o. for now
Early mobilization
If hemodynamically stable with no evidence for further bleeding patient can be transferred out of ICU-call pulmonary if respiratory issues arise
Reviewed the patient's pertinent medical records including radiographs, microbiology, laboratory evaluations, and discussion with primary team, consultants, pharmacy, nutrition, physical therapy, case management, charge nurse, critical care
nursing, and respiratory therapy.
Diagnostic data:
Chest x-ray 07/08/2023-NAD, minimal basilar atelectasis, no focal airspace disease or pneumothorax mild prominent interstitial markings perihilar region
Subjective Dataa
Subjective Data
Date of Service:
Date of Service: July 08, 2023
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
Subjective:
Slept well, hives resolved, no complaints of shortness of breath, chest congestion, productive cough, or abdominal pain
Review of Systems
General: Other (Per HPI)
Objective Data
Data Reviewed
Vital Signs / I&O / Oxygen:
Vital Signs
Temp Pulse Resp BP Pulse Ox
98.7 F 89 20 146/81 100
07/08/23 07:00 07/08/23 06:00 07/08/23 06:00 07/08/23 06:00 07/08/23 06:00
Intake and Output
07/07/23 07/08/23 07/09/23
06:59 06:59 06:59
Intake Total 2660 / 2660 3440 / 3440
Output Total 970 / 970 2400 / 2400
Balance 1690 / 1690 1040 / 1040
SaO2 100
Nasal Cannula flow liters per 2
minute
Physical Exam
General: Respiratory Distress (n) and Comfortable
HEENT: Normocephalic, Anicteric and Moist Mucous Membranes
Cardiovascular: Regular Rhythm
Respiratory: Wheeze (n), Crackles (n), Rhonchi (n), Non-Labored Respirations, Accessory Resp Muscle Use (n) and Stridor (n)
GI: Soft, Non Distended and Non Tender
Neurology: Awake, Alert and No Motor Deficits
Skin: Warm, Good Color, Cyanosis (n), Jaundice (n) and Rash (n)
Labs/Micro/Reports
Lab Data
07/08/23 03:10
07/08/23 03:10
Laboratory Results
07/08/23
03:10
PT 15.8 H
INR 1.28
APTT 37.7 H
Microbiology
07/06/23 11:50 Nasal Swab Influenza Types A & B (DESI) - Final
Negative for Influenza A & B, NAAT
Negative results must be combined with clinical observations
and patient history.
Nucleic Acid Amplification test (NAAT)performed on the
[employer] platform.
--- NOTE | 2023-07-08 09:27 | PTCARENOTE ---
Pt resting comfortably, VSS. Hgb 7.7 this am stable, Dr Martin updated and saw pt. Pt to remain in ICU at this time for monitoring. Pt to have EGD done tomorrow if pt stable. No BMs since arrival to ICU. Call zacarias at side, Pneumatic teds on.
[2023-07-08] MEDS: NSS 1000 IV (10:45)
--- NOTE | 2023-07-08 12:00 | PTCARENOTE ---
Pt assisted OOB to chair, sl weak, but tolerating well. Dr Muñoz updated and in to see pt. Dr Cat cleared pt being able to have ensure and was ordered. Pt to be NPO after midnight for EGD tomorrow.
--- NOTE | 2023-07-08 12:25 | W.PN.HOSP.TC ---
Today's Communication/Plan
-
IV Fe
EGD tomorrow
slow IVF
Ensure,
NPO post midnight
Assessment / Plan
Assessment / Plan
Acute on chronic blood loss anemia due to likely acute upper GI bleed:
Pt was taking Naprosyn due to chronic hip pain
-now on full liquids/IV fluids to be slowed/PPI drip
-suspect PUD as the cause of GIB due to NSAIDs
-c/s GI for EGD, due to electrolyte issues, text received from Dr. Cat, plan is to 'hold off on EGD' over weekend with plan for Saturday 07/08
-transfused 2U pRBCs, then yesterday on start of unit developed transfusion rxn and blood stopped, ordered and given IV Benadryl with resolution of rash.
Hgb went from 7.7-->7.0, given 1 unit PRBC early this morning with Benadryl prior (no rxn noted)-->7.8
Fe sat 6%
Ferritin 13.7 (Fe levels consistent with blood loss prior to acute event)
Hypokalemia/Hypocalcemia
most likely transfusion related. Better K 2.3-->4.1-->3.9 Ca 4.8-->7.9-->7.6 (given 2 gm Ca this morning)
Borderline tachycardia
Better. most likely from blood loss anemia. Will follow closely
Leukocytosis
as per Heme, felt to be an acute stress rxn, will follow
Dgt updated yesterday. She is requesting today pt to receive Ensure, just checked with Dr. Cat and he is okay with pt receiving. To be NPO post midnight
discussed plans with MAGED Dueñas
Will order IV Fe
Full Code
Anticipated Discharge: > 48 hours
Subjective/Interval History
-
Date of Service: July 08, 2023
Sitting up in chair, tolerating full liquid diet, denies pruritic rash
Objective Data
-
Labs:
Laboratory Results
07/08/23
03:10
WBC 13.9 H
Hgb 7.8 L
Hct 22.6 L
Plt Count 182
PT 15.8 H
INR 1.28
APTT 37.7 H
Sodium 132 L
Potassium 3.9
Chloride 106
Carbon Dioxide 23
BUN 10
Creatinine 0.8
Glucose 102 H
Calcium 7.6 L
Vital Signs:
Vital Signs
Temp Pulse Resp BP Pulse Ox
99.0 F 88 14 139/81 98
07/08/23 11:00 07/08/23 09:00 07/08/23 09:00 07/08/23 09:00 07/08/23 09:00
I&O
07/07/23 07/08/23 07/09/23
06:59 06:59 06:59
Intake Total 2660 / 2660 3440 / 3550 550 / 550
Output Total 970 / 970 2400 / 2400 650 / 650
Balance 1690 / 1690 1040 / 1150 -100 / -100
Review of Systems
-
History Source: Patient and Coordinated Provider
Constitutional: Reports Fever (100.6 at 19:18)
Respiratory: Reports No Symptoms; Denies Trouble Breathing
Cardiac: Denies Chest Pain (pt denies)
Musculoskeletal: Reports Joint Pain (chronic hip pain)
Skin: Reports Rash (resolved)
Neuro: Reports No Symptoms
Physical Exam
-
General: Well Developed, Well Nourished and No Apparent Distress
HEENT: Normocephalic, Atraumatic and Moist Mucous Membranes
Respiratory: Clear to Auscultation; Negative Wheezes, Rales or Rhonchi
Cardiac: Regular Rhythm, S1/S2 and Tachycardic (better, hr in the 86-102 range)
GI: Soft, Nontender, Nondistended, Normal Bowel Sounds and Other (no stools in past 24 hrs)
Musculoskeletal: No Clubbing, No Cyanosis and No Edema
Neuro: Awake, Alert and Oriented
[2023-07-08] MEDS: FERRLECIT 110 MG IV (14:14)
[2023-07-08 14:28] LABS: Hematocrit 25.1 % (39.0-52.0); Hemoglobin 8.5 g/dL (13.0-18.0); Mean Corp Hgb Conc. 33.9 g/dL (33.0-37.0); Mean Corpuscular Hgb 28.8 pg (27.0-31.0); Mean Corpuscular Volume 85.1 fL (80.0-94.0); Platelet Count 218 10^3/uL (130-400); Red Blood Cell Count 2.95 10^6/uL (4.70-6.10); Red Cell Dist. Width 16.6 % (11.5-14.5); White Blood Cell Count 14.2 10^3/uL (4.8-10.8)
--- NOTE | 2023-07-08 18:15 | PTCARENOTE ---
Pt assisted with walker and RN to walk in hallway for approx 100 ft. Pt [place], and easily fatigued. Pt back to sitting in chair. O2 91% on R/A, 98% on 2l nc. Pt feeling better after sitting for 30 seconds. 2l NC left on. Full liq diet ordered, ensure
clear given as part of his dinner. Pt knows that he will be NPO after midnight for EGD tomorrow. Hgb now 8.5.
[2023-07-08] MEDS: BENADRYL 12.5 MG IV (19:51)
--- NOTE | 2023-07-08 20:09 | PTCARENOTE ---
Received patient in bed, AAOx3, following commands, denying pain. Patient reporting numbness and swelling in his lips, SHEEP RANCHER to bedside. Stat benadryl given, patient reported 'it helped but the tingling is still in the middle of my lips, it is not
spreading anymore'. Daughter called, updated over the phone. Assist X1, helped patient back into bed from chair, [place]. Sinus tachycardia, 90s-110s. BP stable, 120s-150s/70s-80s. Palpable radial and pedal pulses bilaterally. SCDs on. On 2 liters nasal
cannula, clear lung sounds, diminished at the bases posteriorly. No BM since 07/06. NPO after midnight. Urinal to void, clear yellow urine. Skin intact, some bruising throughout extremities. NSS and pantoprazole gtt infusing. Midline and PIVs patent,
WNL.
[2023-07-08] MEDS: NSS IV (21:42)
[2023-07-09] VITALS (39 sets, daily range): BP systolic 88–164; BP diastolic 64–101; BMI 34.0
--- NOTE | 2023-07-09 02:13 | PTCARENOTE ---
Patient assessment unchanged from previous, resting comfortably. Call zacarias within reach.
[2023-07-09] MEDS: PROTONIX 100 IV ×2 (02:57→08:49)
--- NOTE | 2023-07-09 04:45 | PTCARENOTE ---
Patient assessment unchanged from previous, labs sent. Call zacarias within reach, patient able to make needs known.
[2023-07-09 04:57] LABS: Hematocrit 23.6 % (39.0-52.0); Hemoglobin 7.8 g/dL (13.0-18.0); Mean Corp Hgb Conc. 33.1 g/dL (33.0-37.0); Mean Corpuscular Hgb 28.4 pg (27.0-31.0); Mean Corpuscular Volume 85.8 fL (80.0-94.0); Mean Platelet Volume 9.1 fL (7.4-10.4); Platelet Count 212 10^3/uL (130-400); Red Blood Cell Count 2.75 10^6/uL (4.70-6.10); Red Cell Dist. Width 16.1 % (11.5-14.5); White Blood Cell Count 12.9 10^3/uL (4.8-10.8)
[2023-07-09 05:33] LABS: Blood Urea Nitrogen 9 mg/dl (9-20); Carbon Dioxide 24 mmol/L (22-30); Chloride 103 mmol/L (98-107); Estimated Creatinine Clearance 98 ml/min; Glucose 102 mg/dl (70-99); Magnesium 2.1 mg/dl (1.6-2.3); Phosphorus 5.4 mg/dl (2.5-4.5); Potassium 3.9 mmol/L (3.5-5.1); Sodium 134 mmol/L (135-145); eGFR > 60.00
[2023-07-09] MEDS: HYDROPHOR 1 APPLIC TOPICAL (06:08)
--- NOTE | 2023-07-09 07:15 | PTCARENOTE ---
received patient from pet counselor. Patient AAOX3. Complaining of lower lip swelling. Can speak clearly, oxygen is 98% on 2L. He is sinus rhythm on monitor, normotensive. NSS at 40ml/hr and protonix gtt infusing into left forearm. PAtient is
NPO for EGD. Did not have bowel movement. Is using urinal in bed. SCDs on for DVT prophylaxis. Will administer benedryl for lip 'feeling full', patient also complains of itchy rash on buttock. Patient call zacarias within reach, reviewed plan of
care for day.
[2023-07-09] MEDS: BENADRYL 25 MG IV ×2 (07:58→20:31)
--- NOTE | 2023-07-09 08:18 | W.PN.INTV ---
Today's Communication / Plan
Recommendations
Follow hemoglobin
Transfuse as needed
Hematology involved
Benadryl provided prior to transfusion
Blood bank aware of potential reaction
EGD today showed no evidence of active bleed --> CLD today, NPO p [place] for colonoscopy
Patient is stable for transfer out of ICU to telemetry. Electrical Assembly Supervisor/Pulmonary service will now sign off. Please reconsult if there are any additional questions/concerns, or if patient's respiratory status deteriorates.
Assessment
-
72-year-old male without significant past medical history presents with dizziness, hypotension, diarrhea, and taking nonsteroidals for several years for left hip pain and felt to have GI bleed with anemia and electrolyte imbalances requiring fluid
resuscitation, transfusions and intensive care unit monitoring-receiving team member consulted for GI bleed/critical care management 07/07/2023.
Impression:
Anemia due to acute blood loss (stool occult positive)
Upper GI bleed suspected-given significant NSAID use
Possible transfusion reaction
Iron deficiency anemia
Mild leukocytosis
Hypokalemia - resolved
Metabolic acidosis - resolved
Hypoglycemia - resolved
Hypocalcemia
Conditions present prior to admission:
Right forearm benign tumor resection
Right shoulder bone chip removal
Denies hypertension, hyperlipidemia, CAD, pulmonary, renal, gastrointestinal or neurologic disease
Plan:
Hemodynamically stable and currently no signs of angioedema or allergic reaction
Continue supplemental oxygen if needed to maintain SpO2>90-94%
Aspiration precautions
Incentive spirometry encouraged
Trend hemoglobin q8-12hr, if Hb stable by tomorrow AM then can trend Hb with daily CBC
Transfuse packed red blood cells and FFP as needed-with precautions as potential suspicion for transfusion reaction-hives resolved, hematology evaluation obtained, blood and urine sent, blood bank aware
Hematology evaluation-correspondence reviewed
Previously prior to today: Possible transfusion reaction
Transfusion stopped-blood bank notified
Blood and urine samples taken
GI evaluation ongoing-correspondence reviewed
EGD today (3-25-2024): shows LA grade A esophagitis with esophageal ulcers with no stigmata of recent bleeding
PPI 40mg IV q12hr
Plan for colonoscopy tomorrow with prep tonight
Continue to replace electrolytes with goal K>4, Mg>2, PO4>3
Monitor electrolytes closely
Dextrose for hypoglycemia
Intravenous fluids
DVT prophylaxis-mechanical
GI prophylaxis-on PPI
Aspiration precautions
Nutrition- clear liquid diet for today, then will advance diet tomorrow pending colonoscopy results - will defer diet advancement to GI
Early mobilization
Patient is stable for transfer out of ICU to telemetry. Electrical Assembly Supervisor/Pulmonary service will now sign off. Thank you for allowing us to be involved in the care of this patient. Please reconsult if there are any additional questions/concerns, or if
patient's respiratory status deteriorates.
I personally reviewed the patient's pertinent medical records including radiographs, microbiology, laboratory evaluations, and discussion with primary team, consultants, pharmacy, nutrition, physical therapy, case management, charge nurse, critical
care nursing, and respiratory therapy.
Diagnostic data:
Chest x-ray 07/08/2023-NAD, minimal basilar atelectasis, no focal airspace disease or pneumothorax mild prominent interstitial markings perihilar region
Subjective Dataa
Subjective Data
Date of Service:
Date of Service: July 09, 2023
Chief Complaint: Electrical Assembly Supervisor Follow Up and Pulmonary Follow Up
Subjective:
Pt down in GI lab this AM. Hb today is 7.8 from 8.5 yesterday afternoon. Patient's last blood transfusion was on 07/07/2023 at 2335. EGD this AM shows esophageal ulcers x2 with no stigmata of recent bleeding. Has some minor lip swelling this AM
-I evaluated the patient after he returned from endoscopy and he actually said his lip swelling had now fully resolved. He denies any shortness of breath, chest pain, abdominal pain, fevers or chills. He is drinking water without any difficulty
swallowing. BP currently 117/65, heart rate 90, saturating 98% on 2 L/min nasal cannula.
Review of Systems
General: Other (above as per HPI)
Objective Data
Data Reviewed
Vital Signs / I&O / Oxygen:
Vital Signs
Temp Pulse Resp BP Pulse Ox
99.7 F 93 30 126/81 95
07/09/23 07:17 07/09/23 08:00 07/09/23 08:00 07/09/23 08:00 07/09/23 08:00
Intake and Output
07/08/23 07/09/23 07/10/23
06:59 06:59 06:59
Intake Total 3440 / 3550 1680 / 1730 100 / 100
Output Total 2400 / 2400 3500 / 3500 200 / 200
Balance 1040 / 1150 -1820 / -1770 -100 / -100
SaO2 95
Nasal Cannula flow liters per 2
minute
Physical Exam
General: Respiratory Distress (n) and Comfortable
HEENT: Normocephalic, Anicteric, Moist Mucous Membranes and Other (No stridor appreciated via auscultation over anterior neck)
Cardiovascular: S1-S2 and Peripheral Edema (negative)
Respiratory: Wheeze (n), Crackles (n), Rhonchi (n), Non-Labored Respirations, Accessory Resp Muscle Use (n) and Stridor (n)
GI: Soft, Non Distended and Non Tender
Neurology: AO x 3 and No Motor Deficits
Skin: Warm, Dry, Cyanosis (n), Jaundice (n) and Rash (n)
Labs/Micro/Reports
Lab Data
07/09/23 04:37
07/09/23 04:37
Microbiology
07/06/23 11:50 Nasal Swab Influenza Types A & B (DESI) - Final
Negative for Influenza A & B, NAAT
Negative results must be combined with clinical observations
and patient history.
Nucleic Acid Amplification test (NAAT)performed on the
[employer] platform.
--- NOTE | 2023-07-09 08:44 | W.PN.HOSP.TC ---
Today's Communication/Plan
-
Colonoscopy tomorrow
Repeat labwork tonight
Assessment / Plan
Assessment / Plan
Physical Exam
General: No Apparent Distress
HEENT: Normocephalic, Atraumatic and Moist Mucous Membranes
Respiratory: Clear to Auscultation Bilaterally
Cardiac: Regular Rhythm, S1/S2 and Tachycardic (better, hr in the 86-102 range)
GI: Soft, Nontender, Nondistended, Normal Bowel Sounds
Musculoskeletal: No Cyanosis and No Edema
Neuro: Awake, Alert and Oriented

Assessment/Plan
Acute on chronic blood loss anemia due to likely acute upper GI bleed
Anemia due to acute blood loss (stool occult positive)
Upper GI bleed suspected-given significant NSAID use
EGD on 07-09-2023 showed LA grade A esophagitis with esophageal ulcers with no stigmata of recent bleeding
Gastritis
Hiatal Hernia
Possible blood transfusion reaction
Pt was taking Naprosyn due to chronic hip pain
-now on full liquids/IV fluids to be slowed
-Continue IV PPI but once transitioned from IV PPI to PO, use Protonix 40 mg PO BID for 8 weeks then daily
-suspect PUD as the cause of GIB due to NSAIDs
-c/s GI for EGD, due to electrolyte issues, text received from Dr. Cat, plan is to 'hold off on EGD' over weekend with plan for Saturday 07/08
-transfused 2U pRBCs, then recently during this hospitalization on start of 3rd unit developed transfusion rxn and blood stopped, ordered and given IV Benadryl with resolution of rash.
Hgb went from 7.7-->7.0, given 1 unit PRBC with Benadryl prior (no rxn noted)-->7.8
Fe sat 6%
Ferritin 13.7 (Fe levels consistent with blood loss prior to acute event)
Plan is for colonoscopy tomorrow
Clear Liquid Diet at this time
Monitor electrolytes/potassium/calcium
Repeat upper endoscopy in 3 months to check healing/eval for donahue's esophagus.
Iron deficiency anemia
-IV iron started; continued
Hypokalemia/Hypocalcemia
most likely transfusion related. Better K 2.3-->4.1-->3.9 Ca 4.8-->7.9-->7.6 (given 2 gm Ca recently)
Continue to replace electrolytes with goal K>4, Mg>2, PO4>3
Borderline tachycardia
Better. most likely from blood loss anemia. Will follow closely
Leukocytosis
as per Heme, felt to be an acute stress rxn, will follow
Metabolic acidosis - resolved
Hypoglycemia - resolved
Conditions present prior to admission:
Right forearm benign tumor resection
Right shoulder bone chip removal
Denies hypertension, hyperlipidemia, CAD, pulmonary, renal, gastrointestinal or neurologic disease
DVT Prophylaxis: SCDs (no chemical DVT prophylaxis due to GI bleed as above)
Full Code
Anticipated Discharge: > 48 hours
Subjective/Interval History
-
Date of Service: July 09, 2023
Patient was seen and examined. He denied any chest pain, shortness of breath or any other new symptoms or complaints.
Objective Data
-
Labs:
Laboratory Results
07/09/23
04:37
WBC 12.9 H
Hgb 7.8 L
Hct 23.6 L
Plt Count 212
Sodium 134 L
Potassium 3.9
Chloride 103
Carbon Dioxide 24
BUN 9
Creatinine 0.7
Glucose 102 H
Calcium 8.0 L
Vital Signs:
Vital Signs
Temp Pulse Resp BP Pulse Ox
99.7 F 93 30 126/81 95
07/09/23 07:17 07/09/23 08:00 07/09/23 08:00 07/09/23 08:00 07/09/23 08:00
I&O
07/08/23 07/09/23 07/10/23
06:59 06:59 06:59
Intake Total 3440 / 3550 1680 / 1730 100 / 100
Output Total 2400 / 2400 3500 / 3500 200 / 200
Balance 1040 / 1150 -1820 / -1770 -100 / -100
--- NOTE | 2023-07-09 09:07 | PTCARENOTE ---
escorted patient to GI lab.
--- NOTE | 2023-07-09 10:17 | PTCARENOTE ---
Received patient back from GI lab. Orders for clear liquid diet to resume. Patient is somnolent. On two liters nasal cannula, 98%
[2023-07-09] MEDS: NSS 1000 IV (11:29)
--- NOTE | 2023-07-09 13:03 | CM ---
CM following re: discharge planning.
Reviewed pt's chart, met with pt.
Pt is a 72 year old male, admitted with primary dx of Anemia due to acute blood loss.
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 pt stated his company towed his truck back to [place]. 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 No DME, VN or SNF history.
Pt stated he does not have PCP and had no reason to have preferred pharmacy because he was healthy. Pt stated from now on he will find PCP in [facility] and will have his preferred pharmacy.
D/C plan: return back to his apartment in [place]. Pt stated his daughter will transport him home at discharge.
CM will follow with discharge plan updates as hospitalization progresses
[2023-07-09] MEDS: FERRLECIT 110 MG IV (13:31)
[2023-07-09 16:34] LABS: Hematocrit 25.3 % (39.0-52.0); Hemoglobin 8.3 g/dL (13.0-18.0); Mean Corp Hgb Conc. 32.8 g/dL (33.0-37.0); Mean Corpuscular Hgb 28.1 pg (27.0-31.0); Mean Corpuscular Volume 85.8 fL (80.0-94.0); Mean Platelet Volume 8.6 fL (7.4-10.4); Platelet Count 230 10^3/uL (130-400); Red Blood Cell Count 2.95 10^6/uL (4.70-6.10); Red Cell Dist. Width 16.3 % (11.5-14.5)
[2023-07-09] MEDS: NULYTELY SOLUTION 4 LITERS PO (17:03)
--- NOTE | 2023-07-09 17:24 | W.PN.ONC2 ---
Today's Communication / Plan
-
IV iron while inpt as he does not yet have PMD or Highway Maintenance Supervisor and [place].
Impression
Impression
Upper GI Bleed
Acute blood loss and Fe def anemia
Reactive leucocytosis
Osteoarthritis of hip
Plan
Plan
Pt does not currently have a primary care physician or android ui developer in [place] where he lives.
Recommend limited course of IV iron as inpt for this reason to hold him over while he establishes care.
Suggest d/c on Iron protein succinylate liquid 40 mg/15 ml QOD, this formulation is well tolerated.
Dsicussed with pt that he will need ongoing GI and Heme follow up as some of the findings on EGD are more chronic in nature.
Subjective/Objective
Chief Complaint
Heme/Onc follow up of anemia
Subjective
Admits to ongoing hip pain for which he was taking NSAIDS.
EGD result: Padgett's esophagus, ulcers, hiatal hernia, gastritis
Vital Signs:
Vital Signs
Temp Pulse Resp BP Pulse Ox
98.7 F 98 18 142/92 98
07/09/23 16:23 07/09/23 16:23 07/09/23 16:23 07/09/23 16:23 07/09/23 16:23
Lab Results:
Laboratory Data
WBC 12.0 10^3/uL (4.8-10.8) H 07/09/23 16:25
Hgb 8.3 g/dL (13.0-18.0) L 07/09/23 16:25
Plt Count 230 10^3/uL (130-400) 07/09/23 16:25
PT 15.8 Sec (11.4-14.6) H 07/08/23 03:10
INR 1.28 07/08/23 03:10
APTT 37.7 Sec (23.4-35.0) H 07/08/23 03:10
eGFR > 60.00 07/09/23 04:37
Physical Exam
Awake, alert, non-toxic
[2023-07-09] MEDS: PROTONIX IV 40 MG IV (20:15)
[2023-07-09] MEDS: NSS (PRESERVATIVE FREE) 10 ML IV (20:15)
--- NOTE | 2023-07-09 20:45 | PTCARENOTE ---
Addendum entered by Paco Montes RN 07/10/23 03:23:
@22:00, pt no longer has a rash that he claimed started when drinking the Nulytely Solution. Pt stated he wanted to continue to drink the solution. RN reached out to HARDEEP- cleared to continue the prep w/ VSS. No new orders at this time w/ call zacarias
within reach.
Original Note:
Upon assessment, pt started to develop urticaria on B/L extremities complaining of itching. RN instructed pt to stop drinking the Nulytely Solution and administered Benadryl. Pt VSS and HARDEEP made aware- no new orders at this time.
[2023-07-09 23:54] LABS: ALT (SGPT) 41 U/L (0-50); AST (SGOT) 63 U/L (17-59); Albumin 3.3 g/dl (3.5-5.0); Alkaline Phosphatase 86 U/L (38-126); Blood Urea Nitrogen 7 mg/dl (9-20); Calcium 8.3 mg/dl (8.4-10.2); Carbon Dioxide 23 mmol/L (22-30); Chloride 106 mmol/L (98-107); Estimated Creatinine Clearance 99 ml/min; Glucose 78 mg/dl (70-99); Potassium 3.6 mmol/L (3.5-5.1); Sodium 134 mmol/L (135-145); Total Bilirubin 0.9 mg/dl (0.2-1.3); Total Protein 6.2 g/dl (6.3-8.2); eGFR > 60.00
[2023-07-10 02:10] LABS: Hematocrit 26.4 % (39.0-52.0); Hemoglobin 8.9 g/dL (13.0-18.0); Mean Corp Hgb Conc. 33.7 g/dL (33.0-37.0); Mean Corpuscular Hgb 28.5 pg (27.0-31.0); Mean Corpuscular Volume 84.6 fL (80.0-94.0); Mean Platelet Volume 8.6 fL (7.4-10.4); Platelet Count 263 10^3/uL (130-400); Red Blood Cell Count 3.12 10^6/uL (4.70-6.10); Red Cell Dist. Width 16.5 % (11.5-14.5); White Blood Cell Count 12.7 10^3/uL (4.8-10.8)
[2023-07-10 02:24] LABS: ALT (SGPT) 45 U/L (0-50); AST (SGOT) 59 U/L (17-59); Albumin 3.5 g/dl (3.5-5.0); Alkaline Phosphatase 96 U/L (38-126); Blood Urea Nitrogen 8 mg/dl (9-20); Calcium 8.7 mg/dl (8.4-10.2); Carbon Dioxide 24 mmol/L (22-30); Chloride 105 mmol/L (98-107); Estimated Creatinine Clearance 99 ml/min; Glucose 95 mg/dl (70-99); Phosphorus 4.1 mg/dl (2.5-4.5); Potassium 3.7 mmol/L (3.5-5.1); Sodium 136 mmol/L (135-145); Total Bilirubin 0.8 mg/dl (0.2-1.3); Total Protein 6.5 g/dl (6.3-8.2); eGFR > 60.00
[2023-07-10 03:46] VITALS: BP 148/85
--- NOTE | 2023-07-10 05:42 | PTCARENOTE ---
Pt tolerated 4L of the Nulytely Solution finished @00:00. Pt bowels are clear.
[2023-07-10 07:48] VITALS: BP 147/91
[2023-07-10] MEDS: NSS (PRESERVATIVE FREE) 10 ML IV ×2 (07:58→19:53)
[2023-07-10] MEDS: PROTONIX IV 40 MG IV ×2 (07:58→19:53)
[2023-07-10 11:02] VITALS: BP 137/76
[2023-07-10] MEDS: FERRLECIT 110 MG IV (14:17)
[2023-07-10 15:08] VITALS: BP 134/68
--- NOTE | 2023-07-10 16:23 | W.PN.HOSP.TC ---
Today's Communication/Plan
-
Colonoscopy today
Possible discharge in the next 1 to 2 days
PT/OT
Assessment / Plan
Assessment / Plan
Physical Exam
General: No Apparent Distress
HEENT: Normocephalic, Atraumatic and Moist Mucous Membranes
Respiratory: Clear to Auscultation Bilaterally
Cardiac: Regular Rhythm, S1/S2 and Intermittently Tachycardic
GI: Soft, Nontender, Nondistended, Normal Bowel Sounds
Musculoskeletal: No Cyanosis and No Edema
Neuro: Awake, Alert and Oriented

Assessment/Plan
Acute on chronic blood loss anemia due to likely acute upper GI bleed
Anemia due to acute blood loss (stool occult positive)
Upper GI bleed suspected-given significant NSAID use
EGD on 07-09-2023 showed LA grade A esophagitis with esophageal ulcers with no stigmata of recent bleeding
Gastritis
Hiatal Hernia
Possible blood transfusion reaction
Internal Hemorrhoids
Cecum Polyp
Distal Ascending Colon Polyp
Descending Colon Polyp
Pt was taking Naprosyn due to chronic hip pain
-now on full liquids/IV fluids to be slowed
-Continue IV PPI but once transitioned from IV PPI to PO, use Protonix 40 mg PO BID for 8 weeks then daily
-suspect PUD as the cause of GIB due to NSAIDs
-c/s GI for EGD, due to electrolyte issues, text received from Dr. Cat, plan is to 'hold off on EGD' over weekend with plan for Saturday 07/08
-transfused 2U pRBCs, then recently during this hospitalization on start of 3rd unit developed transfusion rxn and blood stopped, ordered and given IV Benadryl with resolution of rash.
Hgb went from 7.7-->7.0, given 1 unit PRBC with Benadryl prior (no rxn noted)-->7.8
Fe sat 6%
Ferritin 13.7 (Fe levels consistent with blood loss prior to acute event)
Colonoscopy today, findings are in the problem list above
Diet advanced to regular diet
Monitor electrolytes/potassium/calcium
Repeat upper endoscopy in 3 months to check healing/evaluation for Padgett's esophagus
Repeat colonoscopy in 5 years for surveillance based on pathology results
To visualize the small bowel, perform video capsule endoscopy at appointment to be scheduled as outpatient
Await pathology results
Iron deficiency anemia
-IV iron started; continued
Hypokalemia/Hypocalcemia
most likely transfusion related. Better K 2.3-->4.1-->3.9 Ca 4.8-->7.9-->7.6 (given 2 gm Ca recently)
Continue to replace electrolytes with goal K>4, Mg>2, PO4>3
Borderline tachycardia
Better. most likely from blood loss anemia. Will follow closely
Leukocytosis
as per Heme, felt to be an acute stress rxn, will follow
Metabolic acidosis - resolved
Hypoglycemia - resolved
Conditions present prior to admission:
Right forearm benign tumor resection
Right shoulder bone chip removal
Denies hypertension, hyperlipidemia, CAD, pulmonary, renal, gastrointestinal or neurologic disease
DVT Prophylaxis: SCDs (no chemical DVT prophylaxis due to GI bleed as above)
Full Code
Anticipated Discharge: 24 - 48 hours
Subjective/Interval History
-
Date of Service: July 10, 2023
Patient was seen and examined. He denied any new symptoms or complaints.
Objective Data
-
Vital Signs:
Vital Signs
Temp Pulse Resp BP Pulse Ox
99.0 F 98 18 134/68 98
07/10/23 15:08 07/10/23 15:08 07/10/23 15:08 07/10/23 15:08 07/10/23 15:08
I&O
07/09/23 07/10/23 07/11/23
06:59 06:59 06:59
Intake Total 1680 / 1730 470 / 470
Output Total 3500 / 3500 1350 / 1350 1050 / 1050
Balance -1820 / -1770 -880 / -880 -1050 / -1050
--- NOTE | 2023-07-10 16:28 | CM ---
Spoke with patient in room .
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
He said that his daughter will be able to drive him home at dc. He would like a days notice of dc so dgt can arrange to pick him up,
He said he will set up MD in [place] after dc.
PLAn Home no needs
[2023-07-10] MEDS: KCL 40 MEQ PO (17:05)
[2023-07-10 19:41] VITALS: BP 152/86
[2023-07-10] MEDS: BENADRYL 25 MG IV (21:26)
--- NOTE | 2023-07-10 21:30 | PTCARENOTE ---
Addendum entered by Paco Montes RN 07/11/23 04:46:
Pt developed urticaria from lower back to B/L lower extremities. RN given Benadryl and changed bed sheets and pt gown. VSS. Pt is now resting comfortably w/ call zacarias within reach.
Original Note:
Pt complained of rash w/ itchiness from B/L extremities. RN given Benadryl. VSS. Call zacarias within reach.
[2023-07-10 23:45] VITALS: BP 144/82
[2023-07-11] VITALS (9 sets, daily range): BP systolic 141–167; BP diastolic 81–96; PULSE 94–117; O2SAT 96
--- NOTE | 2023-07-11 03:32 | DOWNTIME ---
There was a [employer] Client Battalion Chief Downtime on 07/11/2023 from 0100 to 07/11/2023 at 0322. Downtime documentation of patient's care, including medication administrations, has been reconciled in the electronic record per guidelines. Refer to the
patient's paper chart under the miscellaneous tab to see printed paper medication records and downtime forms.
[2023-07-11] MEDS: BENADRYL 25 MG IV (04:02)
[2023-07-11 08:10] LABS: Hematocrit 25.5 % (39.0-52.0); Hemoglobin 8.4 g/dL (13.0-18.0); Mean Corp Hgb Conc. 32.9 g/dL (33.0-37.0); Mean Corpuscular Hgb 28.3 pg (27.0-31.0); Mean Corpuscular Volume 85.9 fL (80.0-94.0); Mean Platelet Volume 8.9 fL (7.4-10.4); Platelet Count 288 10^3/uL (130-400); Red Blood Cell Count 2.97 10^6/uL (4.70-6.10); Red Cell Dist. Width 16.6 % (11.5-14.5); White Blood Cell Count 12.5 10^3/uL (4.8-10.8)
[2023-07-11 08:33] LABS: Blood Urea Nitrogen 12 mg/dl (9-20); Calcium 8.4 mg/dl (8.4-10.2); Carbon Dioxide 26 mmol/L (22-30); Chloride 101 mmol/L (98-107); Estimated Creatinine Clearance 99 ml/min; Glucose 107 mg/dl (70-99); Phosphorus 4.3 mg/dl (2.5-4.5); Potassium 3.9 mmol/L (3.5-5.1); Sodium 135 mmol/L (135-145); eGFR > 60.00
[2023-07-11] MEDS: NSS (PRESERVATIVE FREE) 10 ML IV ×2 (09:06→22:24)
[2023-07-11] MEDS: PROTONIX IV 40 MG IV ×2 (09:06→22:24)
--- NOTE | 2023-07-11 09:55 | CM ---
Pt lives in [place] with his daughter . 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
His daughter will be able to drive him home at dc. He would like a days notice of dc so dgt can arrange to pick him up and speak with daughter.
He said he will set up MD in [place] after dc.
Offered VN he declined VN.
PLAN Home no needs
[2023-07-11] MEDS: FERRLECIT 110 MG IV (13:45)
--- NOTE | 2023-07-11 16:29 | W.PN.HOSP.TC ---
Today's Communication/Plan
-
Anticipated discharge tomorrow
For urticarial rash can try Tiffanie 180 mg, Claritin or 12.5 mg Benadryl
Assessment / Plan
Assessment / Plan
Physical Exam
General: No Apparent Distress
HEENT: Normocephalic, Atraumatic and Moist Mucous Membranes
Respiratory: Clear to Auscultation Bilaterally
Cardiac: Regular Rhythm, S1/S2 and Intermittently Tachycardic
GI: Soft, Nontender, Nondistended, Normal Bowel Sounds
Musculoskeletal: No Cyanosis and No Edema
Neuro: Awake, Alert and Oriented

Assessment/Plan
Acute on chronic blood loss anemia due to likely acute upper GI bleed
Anemia due to acute blood loss (stool occult positive)
Upper GI bleed suspected-given significant NSAID use
EGD on 07-09-2023 showed LA grade A esophagitis with esophageal ulcers with no stigmata of recent bleeding
Gastritis
Hiatal Hernia
Possible blood transfusion reaction
Internal Hemorrhoids
Cecum Polyp
Distal Ascending Colon Polyp
Descending Colon Polyp
Pt was taking Naprosyn due to chronic hip pain
-now on full liquids/IV fluids to be slowed
-Continue IV PPI but once transitioned from IV PPI to PO, use Protonix 40 mg PO BID for 8 weeks then daily
-suspect PUD as the cause of GIB due to NSAIDs
-c/s GI for EGD, due to electrolyte issues, text received from Dr. Cat, plan is to 'hold off on EGD' over weekend with plan for Saturday 07/08
-transfused 2U pRBCs, then recently during this hospitalization on start of 3rd unit developed transfusion rxn and blood stopped, ordered and given IV Benadryl with resolution of rash.
Hgb went from 7.7-->7.0, given 1 unit PRBC with Benadryl prior (no rxn noted)-->7.8
Fe sat 6%
Ferritin 13.7 (Fe levels consistent with blood loss prior to acute event)
Colonoscopy on July 11, 2023, findings are in the problem list above
Diet advanced to regular diet
Monitor electrolytes/potassium/calcium
Repeat upper endoscopy in 3 months to check healing/evaluation for Padgett's esophagus
Repeat colonoscopy in 5 years for surveillance based on pathology results
To visualize the small bowel, perform video capsule endoscopy at appointment to be scheduled as outpatient
Pathology results noted - GI office outpatient will follow-up with the patient about this
Urticarial Rash
-Patient reported he's had this for months
-If rash comes back, can try Tiffanie 180 mg or Claritin or the smallest dose of benadryl
-He will need follow-up with an donor services specialist or senior analyst programmer
Iron deficiency anemia
-IV iron started; continued
Hypokalemia/Hypocalcemia
most likely transfusion related. Better K 2.3-->4.1-->3.9 Ca 4.8-->7.9-->7.6 (given 2 gm Ca recently)
Continue to replace electrolytes with goal K>4, Mg>2, PO4>3
Borderline tachycardia
Better. most likely from blood loss anemia. Will follow closely
Leukocytosis
as per Heme, felt to be an acute stress rxn, will follow
Metabolic acidosis - resolved
Hypoglycemia - resolved
Conditions present prior to admission:
Right forearm benign tumor resection
Right shoulder bone chip removal
Denies hypertension, hyperlipidemia, CAD, pulmonary, renal, gastrointestinal or neurologic disease
DVT Prophylaxis: SCDs (no chemical DVT prophylaxis due to GI bleed as above)
Full Code
July 11, 2023: I spoke to patient and his daughter extensively. All questions and concerns were answered to satisfaction.
Total time spent today on reviewing patient's chart, seeing and examining the patient, documentation, reviewing orders and speaking with the patient's daughter was 55 minutes.
Anticipated Discharge: Within 24 hours
Subjective/Interval History
-
Date of Service: July 11, 2023
Patient was seen and examined. He was exercising in his bed. He reported that he had an itchy rash last night of what looked like urticaria - he reported he has had this rash for months.
Objective Data
-
Labs:
Laboratory Results
07/11/23
07:33
WBC 12.5 H
Hgb 8.4 L
Hct 25.5 L
Plt Count 288
Sodium 135
Potassium 3.9
Chloride 101
Carbon Dioxide 26
BUN 12
Creatinine 0.7
Glucose 107 H
Calcium 8.4
Vital Signs:
Vital Signs
Temp Pulse Resp BP Pulse Ox
98.9 F 95 20 159/81 97
07/11/23 14:49 07/11/23 14:49 07/11/23 14:49 07/11/23 14:49 07/11/23 14:49
I&O
07/10/23 07/11/23 07/12/23
06:59 06:59 06:59
Intake Total 470 / 470 240 / 240
Output Total 1350 / 1350 2450 / 2450
Balance -880 / -880 -2210 / -2210
[2023-07-11] MEDS: BENADRYL 12.5 MG IV (22:19)
[2023-07-11] MEDS: FLUSH (NSS) 2 FLUSH IV (22:26)
--- NOTE | 2023-07-11 22:35 | PTCARENOTE ---
Pt c/o generalized itching. Significant red raised rash noted on back, shoulders, abdomen, and all 4 extremities. Denies any lip swelling or numbness as he had reported on previous days. Benadryl 12.5mg IV given w/significant improvement w/in 15
min. 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 No pruritus at this time. Will continue to monitor.
--- NOTE | 2023-07-11 23:32 | VATNOTE ---
PT C/O EXCRUTIATING PAIN IN TAWNY WHEN ML FLUSHED.SITE APPEARS WNL. ML REMOVED.
[2023-07-12 03:35] VITALS: BP 154/84
[2023-07-12 07:00] VITALS: BP 138/81
[2023-07-12] MEDS: FLUSH (NSS) 2 FLUSH IV ×2 (08:20→13:23)
[2023-07-12] MEDS: NSS (PRESERVATIVE FREE) 10 ML IV ×2 (08:20→19:27)
[2023-07-12] MEDS: PROTONIX IV 40 MG IV ×2 (08:20→19:27)
[2023-07-12 11:00] VITALS: BP 159/96
--- NOTE | 2023-07-12 12:38 | W.PN.HOSP.TC ---
Today's Communication/Plan
-
Discharge today
Assessment / Plan
Assessment / Plan
Physical Exam
General: No Apparent Distress
HEENT: Normocephalic, Atraumatic and Moist Mucous Membranes
Respiratory: Clear to Auscultation Bilaterally
Cardiac: Regular Rhythm, S1/S2 and RRR
GI: Soft, Nontender, Nondistended, Normal Bowel Sounds
Musculoskeletal: No Cyanosis and No Edema
Neuro: Awake, Alert and Oriented

Assessment/Plan
Acute on chronic blood loss anemia due to likely acute upper GI bleed
Anemia due to acute blood loss (stool occult positive)
Upper GI bleed suspected-given significant NSAID use
Padgett's esophagus
EGD on 07-09-2023 showed LA grade A esophagitis with esophageal ulcers with no stigmata of recent bleeding
Gastritis
Hiatal Hernia
Possible blood transfusion reaction
Internal Hemorrhoids
Cecum Polyp
Distal Ascending Colon Polyp
Descending Colon Polyp
Patient was taking Naprosyn due to chronic hip pain
-now on full liquids/IV fluids to be slowed
-Continue IV PPI but once transitioned from IV PPI to PO, use Protonix 40 mg PO BID for 8 weeks then daily
-suspect PUD as the cause of GIB due to NSAIDs
-c/s GI for EGD, due to electrolyte issues, text received from Dr. Cat, plan is to 'hold off on EGD' over weekend with plan for Saturday 07/08
-transfused 2U pRBCs, then recently during this hospitalization on start of 3rd unit developed transfusion rxn and blood stopped, ordered and given IV Benadryl with resolution of rash.
Hgb went from 7.7-->7.0, given 1 unit PRBC with Benadryl prior (no rxn noted)-->7.8
Fe sat 6%
Ferritin 13.7 (Fe levels consistent with blood loss prior to acute event)
Colonoscopy on July 11, 2023, findings are in the problem list above
Diet advanced to regular diet
Monitor electrolytes/potassium/calcium
Repeat upper endoscopy in 3 months to check healing/evaluation for Padgett's esophagus
Repeat colonoscopy in 5 years for surveillance based on pathology results
To visualize the small bowel, perform video capsule endoscopy at appointment to be scheduled as outpatient
Pathology results noted - GI office outpatient will follow-up with the patient about this
Protonix (pantoprazole) 40 mg PO BID for 8 weeks then daily
Urticarial Rash
-Patient reported he's had this for months
-If rash comes back, can try Tiffanie 180 mg or Claritin or the smallest dose of benadryl
-Patient will need follow-up with an physical medicine specialist or pan shover
Iron deficiency anemia
-IV iron started; continued
-Patient will need to follow-up with hematology
-On discharge: Iron protein succinylate liquid 40 mg/15 ml QOD
Hypokalemia/Hypocalcemia
most likely transfusion related. Better K 2.3-->4.1-->3.9 Ca 4.8-->7.9-->7.6 (given 2 gm Ca recently)
Continue to replace electrolytes with goal K>4, Mg>2, PO4>3
Monitor CBC, CMP, Calcium and Phos closely outpatient
Borderline tachycardia
Better. most likely from blood loss anemia. Will follow closely
Leukocytosis
as per Heme, felt to be an acute stress rxn, will follow
Metabolic acidosis - resolved
Hypoglycemia - resolved
Conditions present prior to admission:
Right forearm benign tumor resection
Right shoulder bone chip removal
Osteoarthritis of the Hip
Denies hypertension, hyperlipidemia, CAD, pulmonary, renal, gastrointestinal or neurologic disease
DVT Prophylaxis: SCDs (no chemical DVT prophylaxis due to GI bleed as above)
Full Code
July 11, 2023: I spoke to patient and his daughter extensively. All questions and concerns were answered to satisfaction.
More than 30 minutes spent in discharge including
Final examination of the patient
Summarizing hospital stay
Instructions for continuing care to all relevant caregivers
Preparation of discharge records, prescriptions, and referral forms
Total time spent (in minutes): 38
Anticipated Discharge: Today
Subjective/Interval History
-
Date of Service: July 12, 2023
Patient was seen and examined. He reported no new symptoms or complaints, had normal bowel movement yesterday with normal color. He is looking forward to being discharged today.
Objective Data
-
Vital Signs:
Vital Signs
Temp Pulse Resp BP Pulse Ox
98.2 F 99 18 159/96 98
07/12/23 11:00 07/12/23 11:00 07/12/23 11:00 07/12/23 11:00 07/12/23 11:00
I&O
07/11/23 07/12/23 07/13/23
06:59 06:59 06:59
Intake Total 240 / 240 2620 / 2620
Output Total 2450 / 2450 1850 / 1850
Balance -2210 / -2210 770 / 770
[2023-07-12] MEDS: FERRLECIT 110 MG IV (13:22)
--- NOTE | 2023-07-12 13:55 | W.DS.TRANS ---
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
-
Discharge Instructions:
Discharge Diagnosis/Procedures Acute on chronic blood loss anemia due to likely
acute upper gastrointestinal bleed
Anemia due to acute blood loss (stool occult
positive)
Upper Gastrointestinal bleed suspected-given
significant non-steroidal anti-inflammatory drug
use
Padgett's esophagus
Upper Endoscopy on 07-09-2023 showed LA grade A
esophagitis with esophageal ulcers with no
stigmata of recent bleeding
Gastritis
Hiatal Hernia
Possible blood transfusion reaction with hives/
urticaria
Internal Hemorrhoids
Cecum Polyp
Distal Ascending Colon Polyp
Descending Colon Polyp
Urticarial Rash Since Approximately April 2023
Iron deficiency anemia
Hypokalemia/Hypocalcemia
Borderline tachycardia
Leukocytosis
Metabolic acidosis
Hypoglycemia
Right forearm benign tumor resection
Right shoulder bone chip removal
Osteoarthritis of the Hip
Diet Regular,As tolerated
Activity As tolerated
Blood Work Monitor CBC, CMP, Calcium and Phos closely
outpatient - you will need to get these done
within 5-7 days with PCP or one of your other
outpatient physicians
Instructions:
Stand-Alone Forms:
Changes to Home Medications: Yes
Discharge Medications:
DC Medications w/original date entered in [facility]
iron succinyl-protein complex 40 mg/15 mL oral liquid (Ferretts IPS) 15 ml PO Q48H #237 mL 07/12/23
pantoprazole 40 mg tablet,delayed release See Rx Instructions .Route .COMPLEX #120 tabs 07/12/23
Home Medication Changes
Iron protein succinylate liquid and Pantoprazole are new medications
Pending Results: Yes
Additional Pending Results:
GI Biopsy results
Total time spent discharging patient (in min): 38
--- NOTE | 2023-07-12 14:43 | CM ---
MD entered order for discharge .
Spoke4 with patient reviewed IMM . IMM signed on chart.
Pt lives in [place] with his daughter .
His daughter will be able to drive him home at dc.
He said he will set up MD in [place] after dc.
Offered VN he declined VN.
PLAN Home no needs
[2023-07-12 15:05] VITALS: BP 150/83; PULSE 87; O2SAT 98
[2023-07-12 16:06] VITALS: BP 151/94
[2023-07-12 19:50] VITALS: BP 163/85
--- NOTE | 2023-07-14 16:58 | W.DCSUMMARY ---
Discharge Summary
Discharge Data
Date of Admission: 07/06/23
Date of Discharge: 07/12/23
Total time spent discharging patient (in min): 38
-
Pending Results: Yes
Additional Pending Results:
GI Biopsy results
Hospital Course
72 y/o male who presented with weakness and dizziness, and was found to have acute blood loss anemia likely secondary to acute upper gastrointestinal bleeding. Patient was placed on a proton pump inhibitor drip, and total of three full units of
blood and a little bit of a fourth unit was transfused - the third unit of blood had to be stopped (and Blood Bank was notified) due to an itchy skin rash and lip swelling the patient developed. Benadryl was given and given prior to the fourth unit
of blood and patient tolerated the transfusion well. Patient also had significant hypokalemia and hypocalcemia for which replacement was needed. Patient was in the intensive care unit and bone char puller, gastroenterology and hematology were all
consulted. Patient was started on intravenous iron.
Upper endoscopy showed, as per clothes drier repairer's report: 1) Esophageal mucosal changes consistent with long-segment Padgett's esophagus; 2) LA Grade A esophagitis; 3) Esophageal ulcers with no stigmata of recent bleeding; 4) Medium-sized hiatal
hernia; 5) Gastritis. Biopsies were taken. It was recommended that patient take Protonix (Pantoprazole) 40 mg PO BID for 8 weeks followed by daily Protonix 40 mg. Patient would need to follow-up pathology results and repeat upper endoscopy in 3
months to check healing/evaluation for Padgett's esophagus. Colonoscopy was performed (the biopsy results for which he would need to discuss with [facility] office) and the findings as per clothes drier repairer's report were: 1)
Hemorrhoids found on perianal exam; 2) The examined portion of the ileum was normal; 3) One 3 mm polyp in the cecum, removed with a cold biopsy forceps. Resected and retrieved; 3) One 5 mm polyp in the distal ascending colon, removed with a cold
biopsy forceps. Resected and retrieved; 4) One 8 mm polyp in the descending colon, removed with a cold snare. Resected and retrieved; 5) Internal hemorrhoids. Gastroenterology recommended that patient have a repeat colonoscopy soon, and that to
visualize the small bowel, perform video capsule endoscopy at appointment to be scheduled as outpatient.
Hematology recommended that patient be continued on Iron protein succinylate liquid 40 mg/15 ml every other day, on discharge.
Patient continued to have an intermittent urticarial rash for which Benadryl brought relief. He would need to follow-up with dermatology and commercial truck driver/docketing specialist after discharge.
Discharge Plan
-
Patient Disposition: Home (Routine Discharge)
Discharge Diagnosis/Procedures: Acute on chronic blood loss anemia due to likely acute upper gastrointestinal bleed
Anemia due to acute blood loss (stool occult positive)
Upper Gastrointestinal bleed suspected-given significant non-steroidal anti-inflammatory drug use
Padgett's esophagus
Upper Endoscopy on 07-09-2023 showed LA grade A esophagitis with esophageal ulcers with no stigmata of recent bleeding
Gastritis
Hiatal Hernia
Possible blood transfusion reaction with hives/urticaria
Internal Hemorrhoids
Cecum Polyp
Distal Ascending Colon Polyp
Descending Colon Polyp
Urticarial Rash Since Approximately April 2023
Iron deficiency anemia
Hypokalemia/Hypocalcemia
Borderline tachycardia
Leukocytosis
Metabolic acidosis
Hypoglycemia
Right forearm benign tumor resection
Right shoulder bone chip removal
Osteoarthritis of the Hip
Condition: Fair
Diet: As tolerated and Regular
Activity: As tolerated
Blood Work: Monitor CBC, CMP, Calcium and Phos closely outpatient - you will need to get these done within 5-7 days with PCP or one of your other outpatient physicians
Activity Restrictions/Additional Instructions:
-You will get a call from [facility] to further review and explain your pathology results -- you can call their office if you don't receive a call
-You will need to repeat upper endoscopy in 3 months to check healing/evaluation for Padgett's esophagus, repeat colonoscopy in 5 years for surveillance based on pathology results
and to visualize the small bowel, perform video capsule endoscopy at appointment to be scheduled as outpatient ---- you will need to call the outpatient [facility] office
-You can take Tiffanie 180 mg daily or Claritin over the counter for your itchy rash (urticaria)
-You will need to see an docketing specialist or commercial truck driver (and also a group fitness assistant department head) to further work-up your itchy rash
-You need to follow-up with a awake overnight monitor outpatient, given your anemia
Referrals:
Kathia Silva MD [Active] - in one to two weeks (Hospital Follow-up, Anemia)
Olena Cat MD [Active] - (follow up with Dr. Cat from GI vs see GI in [place] to arrange to video capsule testing. Call GI office if records need to be sent to [place])
NONE,* [Family Provider] -
Sandra Leyva DO [Active] - in two to three weeks (Urticaria)
Additional Discharge Medication Instructions: Ferretts and Pantoprazole are new medications.
Prescriptions:
New
pantoprazole 40 mg tablet,delayed release (DR/EC)
See Rx Instructions .ROUTE .COMPLEX Qty: 120 1RF
Rx Instructions:
40 mg BID x8 weeks, followed by daily dosing
Ferretts IPS 40 mg/15 mL liquid
15 ml PO Q48H Qty: 237 2RF
Discontinued
naproxen sodium [Aleve] 220 mg Tablet
220 mg PO Q8HPRN PRN (Reason: pain)
Discharge Orders:
Discharge Patient (As Directed); Ordered 07/12/23
Ordered By: Manoj Hendrix
Discharge Date and Time
Discharge Date/Time: 07/12/23 20:17
Print Language: BRUNEIAN
== END 2023-07-12 20:17 | disposition home or self-care (01) | DRG 378 ==
LOC: 4 EAST ACU 14:16
PROVIDERS: Internal Medicine; Internal Medicine Critical Care Medicine; Internal Medicine Gastroenterology; Physician Assistant Medical; ADMITTING PHYSICIAN Internal Medicine; ATTENDING PHYSICIAN Hospitalist; CONSULT PHYSICIAN Internal Medicine Critical Care Medicine; CONSULT PHYSICIAN Internal Medicine Gastroenterology; CONSULT PHYSICIAN Internal Medicine Hematology & Oncology; EMERGENCY PHYSICIAN Emergency Medicine
PROC: 30233N1 Transfusion of Nonautologous Red Blood Cells into Peripheral Vein, Percutaneous Approach (ICD-10-PCS; 2023-07-06)
PROC: 0DB98ZX Excision of Duodenum, Via Natural or Artificial Opening Endoscopic, Diagnostic (ICD-10-PCS; 2023-07-09)
PROC: 0DB48ZX Excision of Esophagogastric Junction, Via Natural or Artificial Opening Endoscopic, Diagnostic (ICD-10-PCS; 2023-07-09)
PROC: 0DB68ZX Excision of Stomach, Via Natural or Artificial Opening Endoscopic, Diagnostic (ICD-10-PCS; 2023-07-09)
PROC: 0DB38ZX Excision of Lower Esophagus, Via Natural or Artificial Opening Endoscopic, Diagnostic (ICD-10-PCS; 2023-07-09)
PROC: 0DBK8ZZ Excision of Ascending Colon, Via Natural or Artificial Opening Endoscopic (ICD-10-PCS; 2023-07-10)
PROC: 0DBM8ZZ Excision of Descending Colon, Via Natural or Artificial Opening Endoscopic (ICD-10-PCS; 2023-07-10)
PROC: 0DBH8ZZ Excision of Cecum, Via Natural or Artificial Opening Endoscopic (ICD-10-PCS; 2023-07-10)
DX: K29.71 Gastritis, unspecified, with bleeding (principal); D62 Acute posthemorrhagic anemia; D68.32 Hemorrhagic disorder due to extrinsic circulating anticoagulants; E87.20 Acidosis, unspecified; D50.9 Iron deficiency anemia, unspecified; G89.29 Other chronic pain; M25.552 Pain in left hip; E87.6 Hypokalemia; E16.2 Hypoglycemia, unspecified; E83.51 Hypocalcemia; K22.89 Other specified disease of esophagus; K44.9 Diaphragmatic hernia without obstruction or gangrene; M16.10 Unilateral primary osteoarthritis, unspecified hip; K22.70 Barrett's esophagus without dysplasia; K64.0 First degree hemorrhoids; D72.829 Elevated white blood cell count, unspecified; D12.0 Benign neoplasm of cecum; D12.2 Benign neoplasm of ascending colon; T80.89XA Other complications following infusion, transfusion and therapeutic injection, initial encounter; L50.8 Other urticaria; D12.4 Benign neoplasm of descending colon; Z79.1 Long term (current) use of non-steroidal anti-inflammatories (NSAID); Z11.52 Encounter for screening for COVID-19; Z96.641 Presence of right artificial hip joint; Z88.6 Allergy status to analgesic agent; Z88.5 Allergy status to narcotic agent; Z80.0 Family history of malignant neoplasm of digestive organs
CPT/HCPCS: 88305; 36430; 71045; 80048; 80053; 82607; 82728; 82746; 83540; 83550; 83690; 83735; 84100; 85018; 85025; 85027; 85610; 85730; 86078; 86850; 86900; 86901; 86920; 87502; 87811; 88341; 88342; 93005; 96361; 96365; 96366; 96376; 97116; 97163; 97167; 97530; 99285; J2916; P9016